=== PATIENT | female | born 1945 | race Caucasian/White ===

== ENCOUNTER → 2016-10-08 | Outpatient (CLI) | payer BC ==
[2016-10-08 10:52] LABS: BASO % 0.6 %; BASO ABS # 0.03 K/uL (0-0.2); COMPLETE YES; EOS % 4.4 %; LYMPH % 34.9 %; LYMPH ABS # 1.65 K/uL (1.2-3.4); MEAN CELL VOLUME 92.9 fL (80-100); MEAN CORPUSCULAR HEMOGLOBIN 31.5 pg (25-34); MEAN PLATELET VOLUME 11.8 fL (7.4-10.4); NEUT % 49.1 %; PLATELET COUNT 201 K/uL (130-400); RED BLOOD COUNT 4.63 M/uL (4.2-5.4); WHITE BLOOD COUNT 4.73 K/uL (4.8-10.8)
[2016-10-08 11:15] LABS: ESTIMATED AVERAGE GLUCOSE 126 mg/dl; HA1C FLAG Normal (Normal)
[2016-10-08 11:19] LABS: ALT/SGPT 30 U/L (12-78); BLOOD UREA NITROGEN 23 mg/dl (7-18); BUN/CREATININE RATIO 33.4 (10-20); CALCIUM 8.6 mg/dl (8.5-10.1); CARBON DIOXIDE 29 mmol/L (21-32); CHLORIDE 108 mmol/L (98-107); CHOLESTEROL 168 mg/dl (0-200); CREATININE 0.68 mg/dl (0.60-1.20); GLUCOSE 93 mg/dl (70-99); POTASSIUM 3.8 mmol/L (3.5-5.1); SODIUM 143 mmol/L (136-145); TRIGLYCERIDES 80 mg/dl (0-150); URIC ACID 3.8 mg/dl (2.6-7.2); VERY LOW DENSITY LIPOPROT CALC 16 mg/dl
[2016-10-08 11:27] LABS: ALB/GLOB RATIO 1.2 (0.9-2); ALKALINE PHOSPHATASE 98 U/L (45-117); AST/SGOT 24 U/L (15-37); CHOLESTEROL/HDL RATIO 2.2; HDL CHOLESTEROL 75 mg/dl; LDL CHOLESTEROL CALCULATED 77 mg/dl; PHOSPHORUS 3.5 mg/dl (2.5-4.9)
--- NOTE | 2016-10-16 11:01 | CODING QUERY MEDICAL NECESSITY ---
CQSUPPORTING DIAGNOSIS NEEDED A supporting diagnosis is required for the test/procedure performed on this patient in order for us to be reimbursed by the patient's insurance. Please provide a supporting diagnosis for the following test/procedure listed below next to the test name along with your signature. *If there is no additional diagnosis for this patient that would support the following test/procedure please document that below next to the test/procedure. Test(s)/Procedure(s) that require a supporting diagnosis: DOS 10/08/16 VITAMIN B12 TEST Provider Signature: Date: Thank you Brianna Bailon Health Information Management Once completed, please kindly fax back to [phone] For questions please call [phone]
== END | disposition home or self-care (01) ==
LOC: C.LABBC 07:30
PROVIDERS: ATTEND Family Medicine
DX: E11.9 Type 2 diabetes mellitus without complications (principal); D51.9 Vitamin B12 deficiency anemia, unspecified

== ENCOUNTER → 2017-03-18 | Outpatient (CLI) | payer BC ==
--- NOTE | 2017-03-19 14:31 | MAMMOGRAPHY REPORT ---
BILATERAL DIGITAL SCREENING MAMMOGRAM WITH CAD: 03/18/2017 CLINICAL HISTORY: Routine screening. TECHNIQUE: Current study was also evaluated with a Computer Aided Detection (CAD) system. Bilateral CC and MLO views were obtained. COMPARISON: Comparison is made to exams dated: 03/16/2016 mammogram, 03/12/2015 mammogram, 03/09/2014 ma mmogram, 03/07/2013 mammogram, 12/07/2011 mammogram, and 12/03/2010 mammogram - [facility]. BREAST COMPOSITION: The tissue of both breasts is extremely dense, which lowers the sensitivity of m ammography. FINDINGS: No suspicious masses, calcifications, or areas of architectural distortion are noted in ei ther breast. There has been no significant interval change compared to prior exams. Bilateral asymme tries and bilateral benign appearing calcifications are not significantly changed. IMPRESSION: ACR BI-RADS CATEGORY 2: BENIGN There is no mammographic evidence of malignancy. A 1 year screening mammogram is recommended. The pa tient will receive written notification of the results. Approximately 10% of breast cancers are not detected with mammography. A negative mammographic report should not delay biopsy if a clinically suggestive mass is present. Delmis Sinclair M.D. /:03/18/2017 16:25:18 Slot Host: Krys GRIFFITH(Rian)(), [facility] letter sent: Normal 1/2 BI-RADS Code: ACR BI-RADS Category 2: Benign
== END | disposition home or self-care (01) ==
LOC: C.MAMM 08:10
PROVIDERS: ATTEND Family Medicine
DX: Z12.31 Encounter for screening mammogram for malignant neoplasm of breast (principal)

== ENCOUNTER → 2017-09-29 | Outpatient (CLI) | payer BC ==
[2017-09-29 10:39] LABS: BASO % 0.7 %; BASO ABS # 0.03 K/uL (0-0.2); EOS % 5.4 %; EOS ABS # 0.24 K/uL (0-0.5); HEMATOCRIT 42.9 % (37-47); HEMOGLOBIN 14.7 g/dL (12.0-16.0); LYMPH % 31.1 %; LYMPH ABS # 1.37 K/uL (1.2-3.4); MEAN CELL VOLUME 92.3 fL (80-100); MEAN CORPUSCULAR HEMOGLOBIN 31.6 pg (25-34); MEAN CORPUSCULAR HGB CONC 34.3 g/dl (32-36); MEAN PLATELET VOLUME 11.6 fL (7.4-10.4); MONO % 9.8 %; MONO ABS # 0.43 K/uL (0.11-0.59); NEUT ABS # 2.34 K/uL (1.4-6.5); PLATELET COUNT 206 K/uL (130-400); RED CELL DISTRIBUTION WIDTH CV 13.5 % (11.5-14.5); RED CELL DISTRIBUTION WIDTH SD 45.2 fL (36.4-46.3); WHITE BLOOD COUNT 4.41 K/uL (4.8-10.8)
[2017-09-29 10:56] LABS: ALBUMIN 4.1 gm/dl (3.4-5.0); ALT/SGPT 37 U/L (12-78); AST/SGOT 28 U/L (15-37); BLOOD UREA NITROGEN 25 mg/dl (7-18); CALCIUM 9.3 mg/dl (8.5-10.1); CARBON DIOXIDE 31 mmol/L (21-32); CHOLESTEROL 190 mg/dl (0-200); GLUCOSE 97 mg/dl (70-99); POTASSIUM 3.8 mmol/L (3.5-5.1); SODIUM 141 mmol/L (136-145); URIC ACID 4.2 mg/dl (2.6-7.2)
[2017-09-29 11:05] LABS: ALKALINE PHOSPHATASE 95 U/L (45-117); LDL CHOLESTEROL CALCULATED 96 mg/dl; TOTAL PROTEIN 7.2 gm/dl (6.4-8.2); TRANSFERRIN 320 mg/dl (200-360)
[2017-09-29 11:39] LABS: HEMOGLOBIN A1C 5.9 % (4.5-5.6)
== END | disposition home or self-care (01) ==
LOC: C.LABBC 08:49
PROVIDERS: ATTEND Family Medicine
DX: E88.81 Metabolic syndrome and other insulin resistance (principal); E55.9 Vitamin D deficiency, unspecified; D51.9 Vitamin B12 deficiency anemia, unspecified; E78.9 Disorder of lipoprotein metabolism, unspecified; R53.83 Other fatigue

== ENCOUNTER → 2018-03-22 | Outpatient (CLI) | payer BC ==
--- NOTE | 2018-03-23 13:37 | MAMMOGRAPHY REPORT ---
BILATERAL DIGITAL SCREENING MAMMOGRAM TOMOSYNTHESIS WITH CAD: 03/22/2018 CLINICAL HISTORY: Routine screening. Patient has no complaints. TECHNIQUE: The study was acquired using full field digital technology and interpreted from soft copy. Breast tomosynthesis in addition to standard 2D mammography was performed. Current study was also ev aluated with a Computer Aided Detection (CAD) system. COMPARISON: Comparison is made to exams dated: 03/18/2017 mammogram, 03/16/2016 mammogram, 03/12/2015 m ammogram, 03/09/2014 mammogram, 03/07/2013 mammogram, and 12/07/2011 mammogram - [facility]. BREAST COMPOSITION: The tissue of both breasts is extremely dense, which lowers the sensitivity of ma mmography. FINDINGS: There are stable asymmetries in the medial left breast, and scattered benign-appearing calc ifications. No suspicious mass, architectural distortion or cluster of microcalcifications is seen. IMPRESSION: ACR BI-RADS CATEGORY 1: NEGATIVE There is no mammographic evidence of malignancy. A 1 year screening mammogram is recommended.( 019) The patient will receive written notification of the results. Some breast cancers are not detected with mammography. A negative mammographic report should not natalia y biopsy if a clinically suggestive mass is present. Laurie Interiano M.D. ay/:03/22/2018 15:09:34 [employer]: RT Heath(Rian)(M)(BD), [facility] letter sent: Normal 1/2 BI-RADS Code: ACR BI-RADS Category 1: Negative
== END | disposition home or self-care (01) ==
LOC: C.MAMM 08:18
PROVIDERS: ATTEND Family Medicine
DX: Z12.31 Encounter for screening mammogram for malignant neoplasm of breast (principal)

== ENCOUNTER 2018-12-17 20:55 | Inpatient (IN) ==
--- OUTSIDE RECORDS SUMMARY | 2018-12-17 20:57 | External Medical Summary | Continuity of Care Document ---
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 Refills: 0 Multi Vitamin Daily TABS Refills: 0 Fluorouracil 5 % External Cream; Apply t o nose and upper cutaneous lip once daily at bedtime for 3 weeks BEL Cordon Start: 15-Sep-2017 Quantity: 1 40 GM Tube Refills: 0 Aspirin 81 MG TABS; Take 1 tablet daily Refills: 0 Co Q-10 CAPS Refills: 0 Vitamin D CAPS Refills: 0 Procedures History of Tubal Ligation Status: Comple madie History of Tonsillectomy With Adenoidectomy Status: Completed Immunizations Immunizations not documented Family History Father Family history of Prostate Cancer (V16.42) Status: Active Social History - Smoking Status Never smoker Plan of Treatment Planned Encounters Appointment; Anson Fung M.D. Start: 29-Sep-2019 8:40 Re quest Planned Observations Planned Goals not documented Results No Known Results Results not documented Encounters Appointment; Anson Fung M.D. 28-Sep-2018 11:20 Encounter Diagnosis: Problem not documented Appointment; Paige Cordon PA-C 05-Nov-2017 9:00 Encounter Diagnosis: Problem not documented Appointment; Paige Cordon PA-C 15-Sep-2017 14:30 Encounter Diagnosis: Problem not documented Appointment; Anson Fung M.D. 29-Sep-2019 8:40 Encounter Diagnosis: Problem not documented
[2018-12-17 21:28] LABS: Basophils # (auto) 0.02 K/uL (0-0.2); Basophils % (auto) 0.2 %; Hematocrit (blood only) 40.9 % (37-47); Hemoglobin 14.5 g/dL (12.0-16.0); Immature Granulocytes # (auto) 0.04 K/uL (0.00-0.02); Immature Granulocytes % (auto) 0.3 %; Lymphocytes % (auto) 3.8 %; Mean Corpuscular Hgb Conc 35.5 g/dL (32-36); Mean Corpuscular Volume 89.3 fL (80-100); Monocytes # (auto) 0.46 K/uL (0.11-0.59); Monocytes % (auto) 3.5 %; Neutrophils # (auto) 11.97 K/uL (1.4-6.5); Neutrophils % (auto) 92.2 %; Platelet Count 230 K/uL (130-400); RDW Coefficient of Variation 13.2 % (11.5-14.5); RDW Standard Deviation 43.3 fL (36.4-46.3); Red Blood Count 4.58 M/uL (4.2-5.4); White Blood Count 12.99 K/uL (4.8-10.8)
[2018-12-17 21:29] LABS: Appearance Urine Clear (Clear); Bacteria Urine Automated Negative (Negative); Bilirubin Urine Negative (Negative); Color Urine Yellow; Epithelial Cell Urine Auto >30 /lpf (0-5); Glucose Urine UA Negative (Negative); Ketones Urine Trace (Negative); Leukocyte Esterase Urine Negative (Negative); Nitrite Urine Negative (Negative); Specific Gravity Urine 1.025 (1.000-1.030); Urobilinogen Urine Negative (Negative); pH Urine 7.5 (4.5-7.5)
[2018-12-17] MEDS ORDERED: HYDROmorphone INJ 0.5 MG/0.5 ML SYR IV PRN ×2 (21:34→23:55)
[2018-12-17] MEDS ORDERED: ONDANSETRON INJ 2 MG/ML 2 ML VIAL IV STA (21:34)
[2018-12-17 21:45] LABS: Protein Urine Negative (Negative)
[2018-12-17 21:46] LABS: Alanine Aminotransferase 31 U/L (12-78); Albumin Level 3.7 gm/dl (3.4-5.0); Aspartate Aminotransferase 30 U/L (15-37); BUN Creatinine Ratio 33.3 (10-20); Blood Urea Nitrogen 25 mg/dl (7-18); Calcium 8.8 mg/dl (8.5-10.1); Carbon Dioxide 26 mmol/L (21-32); Chloride 106 mmol/L (98-107); Creatinine Clr Calc Pharmacy 53.5 ml/min; Est GFR (African American) 92.3; Est GFR (Non-African American) 79.6; Glucose 176 mg/dl (70-99); Potassium 3.5 mmol/L (3.5-5.1); Sodium 139 mmol/L (136-145)
[2018-12-17 22:15] LABS: Alkaline Phosphatase 110 U/L (45-117); Bilirubin,Total 0.5 mg/dl (0.2-1); Globulin 3.6 gm/dl (2.5-4.0); Total Protein 7.3 gm/dl (6.4-8.2); Troponin I < 0.015 ng/ml (0-0.045)
--- NOTE | 2018-12-17 22:23 | CT Scan Report ---
CT OF THE ABDOMEN AND PELVIS WITHOUT CONTRAST CLINICAL HISTORY: Upper abdominal pain. COMPARISON STUDY: No previous studies for comparison. TECHNIQUE: Axial images of the abdomen and pelvis were obtained without IV contrast. Images were revi ewed in the axial, sagittal, and coronal planes. Automated exposure control was utilized for the melba dy. A dose lowering technique was utilized adhering to the principles of ALARA. FINDINGS: Lung bases are unremarkable. No pneumatosis, free air or portal venous gas is present. No r enal, ureteral or bladder calculi are present. A 1.7 cm left renal lesion is suboptimally assessed on this exam but this measures near water attenuation. Evaluation of the abdomen and pelvis is difficul t given lack of contrast. Note is made of infiltration within the mesentery as well as indistinctness of the pancreatic head with adjacent infiltration. There is no well-defined fluid collection. No naty iary or pancreatic ductal dilatation is identified. Multiple small bowel loops are mildly dilated and contain stool. However, there is no transition point to suggest a bowel obstruction. A moderate amou nt of stool within colon is also noted. There is no lymphadenopathy. No pelvic ascites. No suspicious osseous lesions are present. IMPRESSION: 1. Infiltration adjacent to the pancreatic head, second portion of the duodenum and within the mesent flavio. The findings raise the possibility of acute pancreatitis or peptic ulcer disease. Evaluation is difficult given the lack of IV contrast. If persistent abdominal pain, a contrast-enhanced CT is shashank mmended. 2. Mildly dilated stool-filled small bowel without transition point to suggest a bowel obstruction. M oderate amount of stool within the colon. Electronically signed by: Dennis Nolen M.D. 12/17/2018 10:22 PM
[2018-12-17] MEDS ORDERED: LACTATED RINGER'S 1,000 ML IV SCH (23:15)
--- NOTE | 2018-12-17 23:59 | History & Physical Report ---
Date of Service December 17, 2018 Assessment & Plan (1) Acute pancreatitis: 73-year-old female with history of hyperlipidemia presents with abdominal pain. Found to have a lipase of 36,[address] significant for infiltration adjacent to the pancreatic head. Pancreatitis Normal saline bolus in the ED, transition to 200 cc/h Pain control, Dilaudid 0.5 mg every 3 hours, as needed Keep n.p.o. Etiology unknownliver enzymes, bili within normal limits We will obtain MRCP Holding lovastatin Admit to [facility] Hyperlipidemia Recent lipid panel was within normal limits Holding statin, aspirin, coenzyme Q 10 CODE STATUS Full code Diet N.p.o. (2) Hyperlipidemia: History of Present Illness Primary Care Provider: Davy Pacheco 73-year-old female with a history of elevated cholesterol presents to the hospital after experiencing abdominal pain throughout the day. She stated that the abdominal pain started early this morning and progressively got worse throughout the day. She states that the pain is a dull pain and it became very severe after eating lunch this afternoon. She denies fevers, chills, nausea, vomiting, diarrhea. Patient denies a history of pancreatitis. She denies a history of gallstones. She does endorse eating more fatty foods latelywas recently on vacation. 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 Family historydiabetes in her father, grandmother of pancreatic cancer at age 97 Allergies Allergy/AdvReac Type Severity Reaction Status Date / Time No Known Allergies Allergy Unverified 12/17/18 21:49 Home Medications Home Medications Medication Instructions Recorded Confirmed Type aspirin [Aspir-81] 81 mg PO Q2D 12/17/18 12/17/18 History cholecalciferol (vitamin D3) 400 unit PO DAILY 12/17/18 12/17/18 History coenzyme Q10 [Co Q-10] 100 mg PO DAILY 12/17/18 12/17/18 History lovastatin 20 mg PO DAILY 12/17/18 12/17/18 History multivitamin [Multiple Vitamins] 1 tab PO DAILY 12/17/18 12/17/18 History Past Med/Surg History Surgical History S/P cataract surgery Family History Other Pancreatic cancer Prostate cancer Social History Preferred Language: Bulgarian Communication Ability: Effective Operation Manager Required: No Beliefs That Will Affect Care: None marital status: Current Living Situation: Spouse current occupational status: retired Feels Safe at Home: Yes Safety Concerns: Feels Safe At This Time Smoking Status: Never smoker Hx Alcohol Use: Yes Alcohol type: wine Hx Substance Use: No Review of Systems Review of Systems: All systems reviewed & are unremarkable except as noted in HPI & below Physical Exam Constitutional: WD/WN, vitals as above Eyes: PERRL, conjunctivae normal, anicteric sclerae ENMT: external ear and nose normal, oropharynx normal Neck: trachea midline, no thyromegaly Respiratory: normal respiratory effort, lungs clear to auscultation Cardiovascular: RRR, no murmur, no edema Gastrointestinal (Abdomen): Inspection/Auscultation: abdomen normal to inspection and normal bowel sounds; abdomen not distended Percussion/Palpation: + abdomen tender (epigastric ) and abdomen soft; no guarding and abdomen not rigid Musculoskeletal: no cyanosis or clubbing, extremities motor strength 5/5 Skin: no rashes, warm and dry Neurologic: patellar DTR's 2+ bilat, sensation intact Psychiatric: A+Ox3, euthymic affect Results & Data Vital Signs (Past 12 Hours) Vital Signs Temp Pulse Pulse Resp BP Pulse Ox 12/17/18 23:56 71 118/68 96 12/17/18 23:03 76 116/67 97 12/17/18 21:55 80 18 126/70 98 12/17/18 20:57 37.1 C 88 16 100 Diagnostic Findings [facility], [place] [phone] CT Scan Report Patient: Pretty GUIDO Date: 12/17/18 MR#: [id number]: [address] Acct ID:[id number]: Date: [address] Zip: [place] [address] Age: 73Location: ED Sex: F Room/Bed: Att Phy: Diagnosis: ABD PAIN Katie Phy: Davy Pacheco M.D.Service Date: 12/17/18 [facility] Phy: Davy Pacheco M.D.Interpreting Phy: Dennis Nolen MD Admit Phy: Ordering Phy: Farrukh Mahoney MD cc: ~ CT OF THE ABDOMEN AND PELVIS WITHOUT CONTRAST CLINICAL HISTORY: Upper abdominal pain. COMPARISON STUDY: No previous studies for comparison. TECHNIQUE: Axial images of the abdomen and pelvis were obtained without IV contrast. Images were reviewed in the axial, sagittal, and coronal planes. Automated exposure control was utilized for the study. A dose lowering technique was utilized adhering to the principles of ALARA. FINDINGS: Lung bases are unremarkable. No pneumatosis, free air or portal venous gas is present. No renal, ureteral or bladder calculi are present. A 1.7 cm left renal lesion is suboptimally assessed on this exam but this measures near water attenuation. Evaluation of the abdomen and pelvis is difficult given lack of contrast. Note is made of infiltration within the mesentery as well as indistinctness of the pancreatic head with adjacent infiltration. There is no well-defined fluid collection. No biliary or pancreatic ductal dilatation is identified. Multiple small bowel loops are mildly dilated and contain stool. However, there is no transition point to suggest a bowel obstruction. A moderate amount of stool within colon is also noted. There is no lymphadenopathy. No pelvic ascites. No suspicious osseous lesions are present. IMPRESSION: 1. Infiltration adjacent to the pancreatic head, second portion of the duodenum and within the mesentery. The findings raise the possibility of acute pancreatitis or peptic ulcer disease. Evaluation is difficult given the lack of IV contrast. If persistent abdominal pain, a contrast-enhanced CT is recommended. 2. Mildly dilated stool-filled small bowel without transition point to suggest a bowel obstruction. Moderate amount of stool within the colon. Electronically signed by: Dennis Nolen M.D. 12/17/2018 10:22 PM Dictated: 12/17/18 2156 Code Status & VTE Plan Code Status full VTE Prophylaxis Plan VTE Prophylaxis will be ordered: Yes Supervising Physician Co-Signing Physician Notes Attending addendum: I have physically seen this patient, have supervised the medical residents activities, and agree with the H&P unless as otherwise noted. Assessment and Plan: Acute pancreatitis- Lipase upon admission 36,013. CT of abdomen pelvis with inflammation of the pancreatic head, second part of duodenum and mesentery. NPO Give normal saline bolus, followed by 200 mils per hour. Serial laboratories. Dilaudid 0.5 mg IV every 3 hours as needed severe pain. Acetaminophen 1 g IV every 8 hours as needed mild pain or temperature. Consult gastroenterology. Remainder of orders and notations as noted. Resident Activity Tracking Resident Involvement: Resident Care Provided Care Provided: Adult Hospital Medicine (1) Acute pancreatitis Acute pancreatitis complication: unspecified Pancreatitis type: unspecified pancreatitis type Qualified Code(s): K85.90 - Acute pancreatitis without necrosis or infection, unspecified
[2018-12-18] MEDS ORDERED: SODIUM CHLORIDE 0.9% 1000ML 1,000 ML IV SCH
--- NOTE | 2018-12-18 01:23 | Emergency Department Note ---
Entered by Mag Wise acting as a scribe for ED Provider Note CHIEF COMPLAINT: Abdominal pain HISTORY OF PRESENT ILLNESS: The patient is a 73 year old female who presents to the Emergency Room with complaints of worsening upper central abdominal pain starting this morning after breakfast and worsening after lunch. She reports that her pain does not radiate and now rates it a 7/10. She states that she tried taking magnesium citrate and an enema because she thought she was constipated, but she notes that this did not alleviate her pain. The patient reports that she experienced similar but less severe pain following her cataract surgery a year ago, after which she did not eat or drink all day. She denies a history of abdominal surgeries but reports a family history of pancreatic and prostate cancer. Pt denies LOC, headache, fevers, chills, diaphoresis, visual changes, neck pain, chest pain, breathing difficulties, nausea, vomiting, back pain, melena, hematochezia, urinary symptoms, numbness, weakness, lymphadenopathy, rash, or other complaints. REVIEW OF SYSTEMS: See HPI for pertinent positives and negatives. A total of ten systems were reviewed and were otherwise negative. PMHx/PSHx: Cataract surgery SOCIAL HISTORY: Patient lives at home. She is and retired. PHYSICAL EXAM: GENERAL: Awake, alert, uncomfortable-appearing, in no distress HENT: Normocephalic, atraumatic. Oropharynx unremarkable. EYES: PERRL. Normal conjunctiva. Sclera non-icteric. NECK: Inspection normal. Non-tender. Supple. No nuchal rigidity. FROM. No masses. RESPIRATORY: Clear to auscultation. No wheezes. No rales. Normal respiratory effort. CARDIAC: Normal rate. Normal rhythm. No murmurs. No rubs. Extremities warm and well perfused. Pulses equal. No JVD. GI: Soft, non-distended. No tenderness to palpation. No rebound or guarding. No masses. Epigastric abdominal pain. RECTAL: Deferred. MUSCULOSKELETAL: Atraumatic. Chest examination reveals no tenderness. The back is symmetrical on inspection without obvious abnormality. There is no CVA tenderness to palpation. No joint edema. LOWER EXTREMITIES: Calves are equal size bilaterally and non-tender. No edema. No discoloration. NEURO: Normal sensorium. No sensory or motor deficits noted. SKIN: No rash or jaundice noted. EMERGENCY DEPARTMENT COURSE: 2112: Past medical records reviewed. The patient was evaluated in room B11B, and a complete history and physical examination were performed. 2315: I reviewed the patient's case with Dr. Rosario - Hospitalist, Yari Rinaldi. Dr. Rosario will evaluate the patient for further management. MEDICAL DECISION MAKING: Prior records/ancillary studies reviewed. Triage Nursing notes reviewed and agree them. Additional history obtained from the patient's . The patient's history was concerning for abdominal pain. Differential diagnosis: Etiologies such as PUD, biliary pathology, UTI, pancreatitis, appendicitis, diverticulitis, obstruction, mesenteric ischemia, aortic pathology, infections, inflammatory bowel disease, renal colic, as well as others were entertained. Physical examination findings: As above. ER treatment provided: IV lactated Ringer's IV Dilaudid IV Zofran On reassessment the patient felt better. Diagnostics interpreted by me: ECG: No acute ischemic change. The labs revealed an unremarkable CBC except for mild leukocytosis. Chemistry panel revealed mild hyperglycemia. LFTs unremarkable. The patient's lipase is markedly elevated concerning for pancreatitis. Imaging studies: Inflammatory change noted around the pancreas concerning for pancreatitis. Patient was educated. She is feeling better after the above treatment. Further management in the hospital will be necessary. Consultation: A consultation was placed with the yari Rinaldi hospitalist team. The case was discussed and diagnostics were reviewed. The patient was evaluated in the ER for further treatment. IMPRESSION: Acute pancreatitis PLAN: Admitted The scribe's documentation has been prepared under my direction and personally reviewed by me in its entirety. I confirm that the note above accurately reflects all work, treatment, procedures, and medical decision making performed by me. Impression & Plan Acute pancreatitis Past Med/Surg History Surgical History S/P cataract surgery Family History Other Pancreatic cancer Prostate cancer Social History Preferred Language: Telugu Communication Ability: Effective Forensic Investigator Required: No Beliefs That Will Affect Care: None marital status: Current Living Situation: Spouse current occupational status: retired Feels Safe at Home: Yes Safety Concerns: Feels Safe At This Time Smoking Status: Never smoker Hx Alcohol Use: Yes Alcohol type: wine Hx Substance Use: No Results & Data Vital Signs Vital Signs - 24 hr 12/17/18 20:57 12/17/18 21:55 12/17/18 23:03 Temperature 37.1 C Temperature Source Oral Sepsis Recent Fever Within 48 Hours No Sepsis Action Taken by Nursing No Action Required Pulse Rate 88 Pulse Rate [Left Finger] 80 76 Pulse Rhythm [Left Finger] Pulse Strength [Left Finger] Respiratory Rate 16 18 Respiratory Effort / Characteristics Non-Labored Respiratory Depth Normal Respiratory Pattern Blood Pressure [Right Arm] 126/70 116/67 Blood Pressure Mean [Right Arm] 88 83 Blood Pressure Position [Right Arm] Sitting Pulse Oximetry 100 98 97 Oxygen Delivery Method Room Air Room Air 12/17/18 23:56 12/18/18 00:00 12/18/18 00:07 Temperature 36.5 C Temperature Source Oral Sepsis Recent Fever Within 48 Hours Sepsis Action Taken by Nursing Pulse Rate Pulse Rate [Left Finger] 71 71 78 Pulse Rhythm [Left Finger] Regular Pulse Strength [Left Finger] Normal Respiratory Rate 14 20 Respiratory Effort / Characteristics Non-Labored Spontaneous Respiratory Depth Normal Respiratory Pattern Regular Blood Pressure [Right Arm] 118/68 120/73 120/73 Blood Pressure Mean [Right Arm] 84 88 88 Blood Pressure Position [Right Arm] Lying Pulse Oximetry 96 95 95 Oxygen Delivery Method Room Air Room Air Room Air Home Medications Current Medication List: was personally reviewed by me Laboratory Data Attestation: I reviewed the patient's lab results. Result diagrams: 12/17/18 21:04 12/17/18 21:04 Lab Results 12/17/18 12/17/18 12/17/18 Range/Units 21:04 21:04 21:10 WBC 12.99 H (4.8-10.8) K/uL RBC 4.58 (4.2-5.4) M/uL Hgb 14.5 (12.0-16.0) g/dL Hct 40.9 (37-47) % MCV 89.3 (80-100) fL MCH 31.7 (25-34) pg MCHC 35.5 (32-36) g/dL RDW Std Deviation 43.3 (36.4-46.3) fL RDW Coeff of Rodolfo 13.2 (11.5-14.5) % Plt Count 230 (130-400) K/uL MPV 11.0 H (7.4-10.4) fL Immature Gran % (Auto) 0.3 % Neut % (Auto) 92.2 % Lymph % (Auto) 3.8 % Major % (Auto) 3.5 % Eos % (Auto) 0.0 % Baso % (Auto) 0.2 % Immature Gran # (Auto) 0.04 H (0.00-0.02) K/uL Neut # (Auto) 11.97 H (1.4-6.5) K/uL Lymph # (Auto) 0.50 L (1.2-3.4) K/uL Major # (Auto) 0.46 (0.11-0.59) K/uL Eos # (Auto) 0.00 (0-0.5) K/uL Baso # (Auto) 0.02 (0-0.2) K/uL Sodium 139 (136-145) mmol/L Potassium 3.5 (3.5-5.1) mmol/L Chloride 106 (98-107) mmol/L Carbon Dioxide 26 (21-32) mmol/L Anion Gap 7.0 (3-11) BUN 25 H (7-18) mg/dl Creatinine 0.75 (0.6-1.2) mg/dl Est Cr Clr Drug Dosing 53.5 ml/min Est GFR ( Amer) 92.3 Est GFR (Non-Af Amer) 79.6 BUN/Creatinine Ratio 33.3 H (10-20) Glucose 176 H (70-99) mg/dl Calcium 8.8 (8.5-10.1) mg/dl Total Bilirubin 0.5 (0.2-1) mg/dl AST 30 (15-37) U/L ALT 31 (12-78) U/L Alkaline Phosphatase 110 (45-117) U/L Troponin I < 0.015 (0-0.045) ng/ml Total Protein 7.3 (6.4-8.2) gm/dl Albumin 3.7 (3.4-5.0) gm/dl Globulin 3.6 (2.5-4.0) gm/dl Albumin/Globulin Ratio 1.0 (0.9-2) Lipase 00755 H (73-393) U/L Urine Color Yellow Urine Appearance Clear (Clear) Urine pH 7.5 (4.5-7.5) Ur Specific [place] 1.025 (1.000-1.030) Urine Protein Negative (Negative) Urine Glucose (UA) Negative (Negative) Urine Ketones Trace H (Negative) Urine Blood Negative (Negative) Urine Nitrite Negative (Negative) Urine Bilirubin Negative (Negative) Urine Urobilinogen Negative (Negative) Ur Leukocyte Esterase Negative (Negative) Urine WBC (Auto) 1-5 (0-5) /hpf Urine RBC (Auto) 0-4 (0-4) /hpf U Hyaline Cast (Auto) 1-5 (0-5) /lpf U Epithel Cells (Auto) >30 H (0-5) /lpf Urine Bacteria (Auto) Negative (Negative) Ur Renal Epithelial Cell Not Reportable Administered Medications Discontinued Medications Hydromorphone HCl (Dilaudid) 0.5 mg IV Q15M PRN PRN Reason: Pain Stop: 12/31/18 21:33 Last Admin: 12/17/18 21:54 Dose: 0.5 mg Documented by: [id number] Ondansetron HCl (Zofran) 4 mg IV NOW STA Stop: 12/17/18 21:35 Last Admin: 12/17/18 21:54 Dose: 4 mg Documented by: [id number] Imaging Data Radiologist's Impression: Radiology results as stated below per my review and the radiologist's interpretation: CT OF THE ABDOMEN AND PELVIS WITHOUT CONTRAST CLINICAL HISTORY: Upper abdominal pain. COMPARISON STUDY: No previous studies for comparison. TECHNIQUE: Axial images of the abdomen and pelvis were obtained without IV con trast. Images were reviewed in the axial, sagittal, and coronal planes. Automated exposure control was utilized for the study. A dose lowering technique was utilized adhering to the principles of ALARA. FINDINGS: Lung bases are unremarkable. No pneumatosis, free air or portal venous gas is present. No renal, ureteral or bladder calculi are present. A 1.7 cm left renal lesion is suboptimally assessed on this exam but this measures near water attenuation. Evaluation of the abdomen and pelvis is difficult given lack of contrast. Note is made of infiltration within the mesentery as well as in distinctness of the pancreatic head with adjacent infiltration. There is no well-defined fluid collection. No biliary or pancreatic ductal dilatation is identified. Multiple small bowel loops are mildly dilated and contain stool. However, there is no transition point to suggest a bowel obstruction. A moderate amount of stool within colon is also noted. There is no lymphadenopathy. No pelvic ascites. No suspicious osseous lesions are present. IMPRESSION: 1. Infiltration adjacent to the pancreatic head, second portion of the duodenum and within the mesentery. The findings raise the possibility of acute pancreatitis or peptic ulcer disease. Evaluation is difficult given the lack of IV contrast. If persistent abdominal pain, a contrast-enhanced CT is recommended. 2. Mildly dilated stool-filled small bowel without transition point to suggest a bowel obstruction. Moderate amount of stool within the colon. Electronically signed by: Dennis Nolen M.D. 12/17/2018 10:22 PM ECG Data Attestation: I personally reviewed and interpreted this ECG as follows: Indication: abdominal pain Rate (beats per minute): 79 Rhythm: normal sinus Findings: no PAC, no PVC, no ST depression and no ST elevation Blood Pressure Blood Pressure Findings: Normal blood pressure Discharge Plan Visit Data Chief Complaint: Abdominal Pain Stated Complaint: ABD PAIN ED Provider: Farrukh Mahoney Discharge Problem: Acute pancreatitis Patient Disposition: Admitted As Inpatient Forms Stand Alone Forms: Call Back Authorization, My [facility] Prescriptions Prescriptions: No Action lovastatin 20 mg tablet 20 mg PO DAILY RF: 0 coenzyme Q10 [Co Q-10] 100 mg Capsule 100 mg PO DAILY RF: 0 cholecalciferol (vitamin D3) 400 unit Tablet 400 unit PO DAILY RF: 0 aspirin [Aspir-81] 81 mg Tablet,Delayed Release (Dr/Ec) 81 mg PO Q2D RF: 0 multivitamin [Multiple Vitamins] Tablet 1 tab PO DAILY RF: 0 Referrals Referrals: Davy Pacheco [Primary Care Provider] - Discharge Problem: Acute pancreatitis Qualifiers: Pancreatitis type: unspecified pancreatitis type Acute pancreatitis complication: unspecified Qualified Code(s): K85.90 - Acute pancreatitis without necrosis or infection, unspecified The scribe's documentation has been prepared under my direction and personally reviewed by me in its entirety. I confirm that the note above accurately reflects all work, treatment, procedures, and medical decision making performed by me.
[2018-12-18] MEDS ORDERED: ONDANSETRON INJ 2 MG/ML 2 ML VIAL IV PRN (01:42)
[2018-12-18] MEDS: SODIUM CHLORIDE 0.9% 1000ML 1,000 ML IV SCH ×5 (01:44→19:47)
[2018-12-18 05:52] LABS: Basophils # (auto) 0.01 K/uL (0-0.2); Basophils % (auto) 0.1 %; Eosinophils # (auto) 0.04 K/uL (0-0.5); Eosinophils % (auto) 0.4 %; Hematocrit (blood only) 35.3 % (37-47); Hemoglobin 12.2 g/dL (12.0-16.0); Immature Granulocytes # (auto) 0.03 K/uL (0.00-0.02); Immature Granulocytes % (auto) 0.3 %; Lymphocytes # (auto) 0.94 K/uL (1.2-3.4); Lymphocytes % (auto) 9.4 %; Mean Corpuscular Hgb Conc 34.6 g/dL (32-36); Mean Corpuscular Volume 90.3 fL (80-100); Mean Platelet Volume 10.9 fL (7.4-10.4); Monocytes # (auto) 0.72 K/uL (0.11-0.59); Monocytes % (auto) 7.2 %; Neutrophils # (auto) 8.22 K/uL (1.4-6.5); Neutrophils % (auto) 82.6 %; Platelet Count 188 K/uL (130-400); RDW Coefficient of Variation 13.5 % (11.5-14.5); RDW Standard Deviation 44.4 fL (36.4-46.3); Red Blood Count 3.91 M/uL (4.2-5.4); White Blood Count 9.96 K/uL (4.8-10.8)
[2018-12-18 06:26] LABS: INR 1.1 (0.9-1.1); Prothrombin Time 11.1 Seconds (9.0-12.0)
[2018-12-18 06:32] LABS: BUN Creatinine Ratio 33.8 (10-20); Calcium 7.7 mg/dl (8.5-10.1); Creatinine Clr Calc Pharmacy 70.4 ml/min; Est GFR (African American) 107.3; Est GFR (Non-African American) 92.6; Magnesium 2.4 mg/dl (1.8-2.4); Potassium 3.8 mmol/L (3.5-5.1)
[2018-12-18 06:51] LABS: Albumin Globulin Ratio 1.1 (0.9-2); Bilirubin,Total 0.4 mg/dl (0.2-1); Globulin 2.7 gm/dl (2.5-4.0); Phosphorus 3.4 mg/dl (2.5-4.9); Total Protein 5.7 gm/dl (6.4-8.2)
[2018-12-18] MEDS: ENOXAPARIN INJ 40 MG/0.4 ML SYR SQ SCH (11:02)
--- NOTE | 2018-12-18 11:36 | Magnetic Resonance Report ---
MRCP CLINICAL HISTORY: Pancreatitis. COMPARISON STUDY: CT of the abdomen and pelvis December 17, 2018. TECHNIQUE: Utilizing a 1.5 Sera magnet, multiplanar, multi echo imaging of the abdomen was performed without intravenous contrast. FINDINGS: There is no biliary or pancreatic ductal dilatation. No common bile duct calculi are identi fied. No gallstones are identified although sensitivity is diminished on this exam given motion artif act. There is a pancreas divisum. The caliber of the main pancreatic duct is normal. Extensive fluid and infiltration centered on the pancreatic head is noted. This extends into the mesentery. No well-d efined fluid collection is present. Diverticulum of the duodenum is noted. A left renal cyst is prese nt. Liver morphology is normal. No hepatic lesions are identified on this unenhanced exam. There is t race perihepatic ascites. IMPRESSION: 1. No biliary ductal dilatation. No common bile duct calculi. 2. Extensive peripancreatic infiltration and fluid consistent with acute pancreatitis. 3. Suspected pancreas divisum. Electronically signed by: Dennis Nolen M.D. 12/18/2018 11:34 AM
[2018-12-18] MEDS: HYDROmorphone INJ 0.5 MG/0.5 ML SYR IV PRN (14:40)
[2018-12-19] MEDS: HYDROmorphone INJ 0.5 MG/0.5 ML SYR IV PRN ×2 (00:05→20:33)
[2018-12-19] MEDS: SODIUM CHLORIDE 0.9% 1000ML 1,000 ML IV SCH ×4 (00:53→19:49)
[2018-12-19] MEDS: ENOXAPARIN INJ 40 MG/0.4 ML SYR SQ SCH (08:16)
[2018-12-19 09:37] LABS: Hematocrit (blood only) 33.8 % (37-47); Hemoglobin 11.3 g/dL (12.0-16.0); Mean Corpuscular Hgb Conc 33.4 g/dL (32-36); Mean Corpuscular Volume 93.4 fL (80-100); Mean Platelet Volume 11.1 fL (7.4-10.4); Platelet Count 142 K/uL (130-400); RDW Standard Deviation 47.9 fL (36.4-46.3); Red Blood Count 3.62 M/uL (4.2-5.4); White Blood Count 12.64 K/uL (4.8-10.8)
[2018-12-19 10:09] LABS: Albumin Level 2.6 gm/dl (3.4-5.0); BUN Creatinine Ratio 32.1 (10-20); Creatinine Clr Calc Pharmacy 74.3 ml/min; Est GFR (African American) 109.3; Est GFR (Non-African American) 94.3; Potassium 3.6 mmol/L (3.5-5.1)
[2018-12-19 10:12] LABS: Albumin Globulin Ratio 0.9 (0.9-2); Bilirubin,Total 0.4 mg/dl (0.2-1); Total Protein 5.6 gm/dl (6.4-8.2)
--- NOTE | 2018-12-19 12:44 | Gastrointestinal Consultation ---
Date of Consultation December 19, 2018 Assessment & Plan (1) Acute pancreatitis: 73 year old female w/ abupt onset upper abdominal pain w/o nausea/vomiting. Lipase on admission was over 30,000 which normalized overnight to 300. Her LFTs have been unremarkable. Imaging w/ evidence of extensive fluid and infiltration on the pancreatic head. Imaging w/o gallstones, biliary dilation, mass/lesion of the pancreas. Etiology unclear, she does have a divisium but the abrupt normalization of lipase concerning for passing stone/sludge She is clinically improving, less abd pain, no nausea or vomiting. She is afebrile, w/ stable vital signs. Appetite back - LR 150 mL/hr - Antiemetics PRN - Analgesia PRN - Consider ABD US as MR had motion artifact to rule out any gallstones - Trial of clear liquids as tolerated - OP EGD/EUS in 6-8 weeks - Will review imaging w/ attending and discuss timing of EUS Thank you for allowing us to participate in the care of this patient. Please call with any acute changes, questions or concerns. Please see addendum below with additional recommendation from my supervising physician. Present on Admission?: Yes Supervising Physician Co-Signing Physician Notes I performed a history and physical examination of the patient, including specifically on physical exam - soft, nontender abdomen. I have discussed the patient's management with Imelda. Please refer to the nurse practitioner's note for the documented findings and plan of care. 73 female patient presented with abdominal pain, found to have mild acute pancreatitis, unclear etiology. Clinically improved and tolerated PO liquids. Imaging with no gallstones or biliary dilation. ?Divisim. Recommend: EUS as OP. Advance diet as tolerated. Recall GI if needed. History of Present Illness Reason for Consultation: pancreatitis Requesting Physician: Jorge Attending Physician: Kvng Patel History of Present Illness 73 year old female with history of dyslipidemia who presents through the ED for evaluation of upper abdominal pain - GI asked to evaluate for pancreatits. Pt was seen and evaluated, chart reviewed. Friend at bedside. Notes abrupt onset upper abdominal pain that started on Wednesday. In the AM this was intermittent, cramping. As the day progressed, this worsened. Constant. Sharp. Would radiate under both breasts and into his back. No vomiting. Rated this pain as 8/10. Since admission this has been improving, Less severe pain. No longer constant. No change in BM. Passing gas. No BM today. No weight loss. No fever, chills, CP, SOB. No new meds No supplemets Had a glass of wine in October, no other ETOH No history of gallstones, biliary colic. No prior episode of pancreatitis. No family history of pancreatitis. There is family history of pancreatic CA in her grandmother. MRCP: No biliary ductal dilatation. No common bile duct calculi. Extensive peripancreatic infiltration and fluid consistent with acute pancreatitis. Suspected pancreas divisum. CT: Infiltration adjacent to the pancreatic head, second portion of the duodenum and within the mesentery. The findings raise the possibility of acute pancreatitis or peptic ulcer disease. Evaluation is difficult given the lack of IV contrast. If persistent abdominal pain, a contrast-enhanced CT is recommended. Mildly dilated stool-filled small bowel without transition point to suggest a bowel obstruction. Moderate amount of stool within the c Allergies Allergy/AdvReac Type Severity Reaction Status Date / Time No Known Allergies Allergy Unverified 12/17/18 21:49 Home Medications Home Medications Medication Instructions Recorded Confirmed Type aspirin [Aspir-81] 81 mg PO Q2D 12/17/18 12/17/18 History cholecalciferol (vitamin D3) 400 unit PO DAILY 12/17/18 12/17/18 History coenzyme Q10 [Co Q-10] 100 mg PO DAILY 12/17/18 12/17/18 History lovastatin 20 mg PO DAILY 12/17/18 12/17/18 History multivitamin [Multiple Vitamins] 1 tab PO DAILY 12/17/18 12/17/18 History Patient History Surgical History S/P cataract surgery Family History Other Pancreatic cancer Prostate cancer Social History Preferred Language: Ivorian Communication Ability: Effective Test Automation Architect Required: No Beliefs That Will Affect Care: None marital status: Current Living Situation: Spouse current occupational status: retired Feels Safe at Home: Yes Safety Concerns: Feels Safe At This Time Smoking Status: Never smoker Hx Alcohol Use: Yes Alcohol type: wine Hx Substance Use: No Review of Systems Constitutional: no fever, no chills, no fatigue and no weight loss Respiratory: no cough, no chest congestion, no dyspnea, no pain on inspiration and no wheezing Cardiovascular: no chest pain, no chest pain at rest, no dyspnea and no palpitations Gastrointestinal: + bloating; no abdominal pain, no belching, no early satiety, no heartburn, no nausea, no vomiting, no coffee ground emesis, no hematemesis, no pain with swallowing, no dysphagia, no cramping, no excessive flatulence, no change in bowel habits, no change in stools, no constipation, no diarrhea/loose stools, no fecal incontinence, no constant urge to pass stools, no blood in stools, no melena and no problem reported Physical Exam Constitutional: WD/WN, vitals as above no acute distress Respiratory: normal respiratory effort, lungs clear to auscultation Cardiovascular: RRR, no murmur, no edema Gastrointestinal (Abdomen): normal bowel sounds, soft, nontender, no hepatosplenomegaly Skin: no rashes, warm and dry Psychiatric: Orientation: alert and oriented x 3 Results & Data Vital Signs (Past 12 Hours) Vital Signs Temp Pulse Resp BP Pulse Ox 12/19/18 07:00 36.6 C 82 17 106/58 L 94 Laboratory Results 12/19/18 12/19/18 Range/Units 09:27 09:27 WBC 12.64 H (4.8-10.8) K/uL RBC 3.62 L (4.2-5.4) M/uL Hgb 11.3 L (12.0-16.0) g/dL Hct 33.8 L (37-47) % MCV 93.4 (80-100) fL MCH 31.2 (25-34) pg MCHC 33.4 (32-36) g/dL RDW Std Deviation 47.9 H (36.4-46.3) fL RDW Coeff of Rodolfo 14.0 (11.5-14.5) % Plt Count 142 (130-400) K/uL MPV 11.1 H (7.4-10.4) fL Sodium 145 (136-145) mmol/L Potassium 3.6 (3.5-5.1) mmol/L Chloride 115 H (98-107) mmol/L Carbon Dioxide 20 L (21-32) mmol/L Anion Gap 11.0 (3-11) BUN 17 (7-18) mg/dl Creatinine 0.54 L (0.6-1.2) mg/dl Est Cr Clr Drug Dosing 74.3 ml/min Est GFR ( Amer) 109.3 Est GFR (Non-Af Amer) 94.3 BUN/Creatinine Ratio 32.1 H (10-20) Glucose 89 (70-99) mg/dl Calcium 8.0 L (8.5-10.1) mg/dl Total Bilirubin 0.4 (0.2-1) mg/dl AST 21 (15-37) U/L ALT 21 (12-78) U/L Alkaline Phosphatase 82 (45-117) U/L Total Protein 5.6 L (6.4-8.2) gm/dl Albumin 2.6 L (3.4-5.0) gm/dl Globulin 3.0 (2.5-4.0) gm/dl Albumin/Globulin Ratio 0.9 (0.9-2) Triglycerides 46 (0-150) mg/dl Lipase 261 (73-393) U/L (1) Acute pancreatitis Acute pancreatitis complication: unspecified Pancreatitis type: unspecified pancreatitis type Qualified Code(s): K85.90 - Acute pancreatitis without necrosis or infection, unspecified
[2018-12-19] MEDS: POLYETHYLENE (MIRALAX) 17 GM PACK PO SCH (17:18)
--- NOTE | 2018-12-19 20:48 | Hospitalist Progress Note ---
Date of Service December 19, 2018 Assessment & Plan (1) Acute pancreatitis: etiology uncertain. no gallstones or sludge on imaging studies including MRCP. no etoh use. calcium normal. triglycerides normal. does use a statin at home but has been on such for 10-15 years -- doubt it caused it. has pancreatic divisum but uncertain if this was main culprit. I would have expected that if the divisum was main etiology she would have had pancreatitis much earlier in life. viral? other? I have asked Selena ROTHMAN to see in consult. Outpatient EUS?? Start clears. Cut fluid rate today. Advance diet as tolerated. hold statin for now. (2) Hyperlipidemia: see above discussion hold statin for now (3) DVT prophylaxis: lovenox daily ambulate Subjective patient's abd pain much improved. minimal today. nausea yesterday -- none today. denies emesis. no BM several days. passing flatus. confirms she does not drink etoh. has been on statin agent for 10-15 years. Review of Systems Constitutional: no fever, no chills and no fatigue Respiratory: no dyspnea Cardiovascular: no chest pain Physical Exam Constitutional: WD/WN, vitals as above no acute distress ENMT: external ear and nose normal, oropharynx normal Respiratory: normal respiratory effort, lungs clear to auscultation Cardiovascular: RRR, no murmur, no edema Heart Sounds: normal S1 and normal S2 Vessels: posterior tibial pulses present and dorsalis pedis pulses present; no JVD Gastrointestinal (Abdomen): normal bowel sounds, soft, nontender, no hepatosplenomegaly Psychiatric: A+Ox3, euthymic affect Results & Data Vital Signs (Past 12 Hours) Vital Signs Temp Pulse Resp BP Pulse Ox 12/19/18 15:17 36.6 C 67 18 118/71 97 Laboratory Results lipase normal today WBC count 12,000 (1) Acute pancreatitis Acute pancreatitis complication: unspecified Pancreatitis type: unspecified pancreatitis type Qualified Code(s): K85.90 - Acute pancreatitis without necrosis or infection, unspecified (2) Hyperlipidemia Hyperlipidemia type: mixed hyperlipidemia Qualified Code(s): E78.2 - Mixed hyperlipidemia
[2018-12-19] MEDS ORDERED: Nursing to Pharmacy Communication ONE (21:27)
[2018-12-20] MEDS: HYDROmorphone INJ 0.5 MG/0.5 ML SYR IV PRN ×2 (02:58→14:33)
[2018-12-20 05:19] LABS: Hematocrit (blood only) 32.7 % (37-47); Hemoglobin 11.3 g/dL (12.0-16.0); Mean Corpuscular Hgb Conc 34.6 g/dL (32-36); Mean Corpuscular Volume 91.3 fL (80-100); Platelet Count 150 K/uL (130-400); RDW Coefficient of Variation 13.9 % (11.5-14.5); RDW Standard Deviation 46.1 fL (36.4-46.3); Red Blood Count 3.58 M/uL (4.2-5.4); White Blood Count 13.19 K/uL (4.8-10.8)
[2018-12-20] MEDS: SODIUM CHLORIDE 0.9% 1000ML 1,000 ML IV SCH ×3 (05:53→15:36)
[2018-12-20 05:55] LABS: BUN Creatinine Ratio 43.9 (10-20); Calcium 7.7 mg/dl (8.5-10.1); Creatinine Clr Calc Pharmacy 91.2 ml/min; Est GFR (African American) 116.9; Est GFR (Non-African American) 100.8; Magnesium 1.9 mg/dl (1.8-2.4); Potassium 3.3 mmol/L (3.5-5.1)
[2018-12-20] MEDS ORDERED: POTASSIUM CHLORIDE 10 MEQ TABCR PO STA (07:49)
[2018-12-20] MEDS: ENOXAPARIN INJ 40 MG/0.4 ML SYR SQ SCH (08:40)
[2018-12-20] MEDS: POLYETHYLENE (MIRALAX) 17 GM PACK PO SCH ×2 (08:46→21:50)
[2018-12-20] MEDS ORDERED: BISACODYL 5 MG TABEC PO ONE ×2 (13:03→13:05)
--- NOTE | 2018-12-20 18:42 | XRay Report ---
XR abdomen 2V w PA chest CLINICAL HISTORY: 73 years-old Female presenting with abdominal pain for 3 days, no bowel movement, a bdominal distention, concern for pancreatitis or ileus. TECHNIQUE: PA view of the chest and supine and upright views of the abdomen were obtained. COMPARISON: CT of abdomen and pelvis from 12/17/2018. FINDINGS: Atherosclerosis of the aortic arch. Cardiac silhouette normal in size. Small bilateral pleural effusi ons and bibasilar opacities, likely atelectasis. No large pneumothorax. Moderate stool burden in the left colon. Nonobstructive bowel gas pattern. No gross pneumoperitoneum. Allowing for bowel gas and stool, no calcifications to suggest nephrolithiasis. Osseous structures normal. IMPRESSION: 1. Small bilateral pleural effusions and bibasilar atelectasis. 2. Moderate stool burden in the left colon. This could be compatible with constipation. 3. No convincing evidence of obstruction or ileus. Electronically signed by: Momo Markham M.D. 12/20/2018 6:40 PM
--- NOTE | 2018-12-20 22:21 | Hospitalist Progress Note ---
Date of Service December 20, 2018 Assessment & Plan (1) Acute pancreatitis: etiology uncertain. no obvious gallstones or sludge on imaging studies including MRCP. no etoh use. calcium normal. triglycerides normal. does use a statin at home but had been on such for 10-15 years -- doubt the statin caused the pancreatitis. has pancreatic divisum but uncertain if this was main culprit. I would have expected that if the divisum was main etiology she would have had pancreatitis much earlier in life. viral? passed gallstone? other? Appreciate [facility] GI consult. Outpatient endoscopic u/s planned. Lipase yesterday was completely normal. She has bloating on exam - uncertain if ileus related to her pancreatitis OR simply severe constipation. Abd x-rays obtained -- constipation only. Increase miralax to BID dosing. Dulcolax PO given earlier today. Fix low K. Ambulate. Just to be complete, and in light of leukocytosis - plan to obtain RUQ u/s to r/o small gallstones, cholecystitis, etc. Perhaps CT/MRI gave false results. Leave clears as is for diet. Cut fluid rate. Labs in am. (2) Hyperlipidemia: see above discussion hold statin for now (3) Hypokalemia: replace, repeat K level am mag level today normal (4) Constipation: x-rays with constipation increase miralax fix low K (5) DVT prophylaxis: lovenox daily ambulate limit narcotics hopefully can move bowels and advance diet tomorrow Subjective had migraine headache last pm -- this is now resolved. upper abd pain resolved. feels bloated but IS passing flatus. no stool in several days. clear liquid diet NOT causing any abd pain, nausea or emesis. ambulating the hallways. Review of Systems Constitutional: no fever and no chills Respiratory: no dyspnea and no dyspnea on exertion Cardiovascular: no chest pain Gastrointestinal: + bloating and + constipation; no abdominal pain, no nausea, no vomiting and no diarrhea/loose stools Physical Exam Constitutional: WD/WN, vitals as above + thin; no acute distress ENMT: external ear and nose normal, oropharynx normal Respiratory: normal respiratory effort, lungs clear to auscultation Cardiovascular: RRR, no murmur, no edema Heart Sounds: normal S1 and normal S2 Vessels: posterior tibial pulses present and dorsalis pedis pulses present; no JVD Gastrointestinal (Abdomen): normal bowel sounds, soft, nontender, no hepatosplenomegaly (bowel sounds normal ) Inspection/Auscultation: + abdomen distended (mild) Psychiatric: A+Ox3, euthymic affect Results & Data Vital Signs (Past 12 Hours) Vital Signs Temp Pulse Resp BP Pulse Ox 12/20/18 16:11 36.4 C L 64 18 131/72 96 Laboratory Results Laboratory Results - last 24 hr 12/20/18 12/20/18 04:58 04:58 WBC 13.19 H RBC 3.58 L Hgb 11.3 L Hct 32.7 L MCV 91.3 MCH 31.6 MCHC 34.6 RDW Std Deviation 46.1 RDW Coeff of Rodolfo 13.9 Plt Count 150 MPV 11.0 H Sodium 143 Potassium 3.3 L Chloride 115 H Carbon Dioxide 24 Anion Gap 4.0 BUN 19 H Creatinine 0.44 L Est Cr Clr Drug Dosing 91.2 Est GFR ( Amer) 116.9 Est GFR (Non-Af Amer) 100.8 BUN/Creatinine Ratio 43.9 H Glucose 107 H Calcium 7.7 L Magnesium 1.9 (1) Hyperlipidemia Hyperlipidemia type: mixed hyperlipidemia Qualified Code(s): E78.2 - Mixed hyperlipidemia (2) Acute pancreatitis Acute pancreatitis complication: unspecified Pancreatitis type: unspecified pancreatitis type Qualified Code(s): K85.90 - Acute pancreatitis without necrosis or infection, unspecified (3) Constipation Constipation type: other constipation type Qualified Code(s): K59.09 - Other constipation
[2018-12-21] MEDS: SODIUM CHLORIDE 0.9% 1000ML 1,000 ML IV SCH (02:58)
--- NOTE | 2018-12-21 06:44 | Ultrasound Report ---
US gallbladder HISTORY: 73 years-old Female pancreatitis; ?gallstones? sludge? Acute right upper quadrant and epiga stric abdominal pain COMPARISON: CT abdomen and pelvis 12/17/2018 TECHNIQUE: Multiple real-time sonographic images of the abdominal right upper quadrant were obtained assessing grayscale appearance and color flow FINDINGS: Trace perihepatic ascites. Mildly heterogeneous appearance of the pancreas with mild peripancreatic e danica. No peripancreatic fluid collection identified. Right pleural effusion incidentally noted. Liver is unremarkable without focal mass or intrahepatic biliary ductal dilation. Gallbladder wall is mildly thickened measuring up to 4 mm. No shadowing cholelithiasis. Patient was r ecently given pain medication, therefore sonographic Terrell sign was unable to be assessed. Common bi le duct is normal, 2 mm. Mild right-sided pelvocaliectasis without [place] hydronephrosis. Right perinephric edema. IMPRESSION: 1. Trace right upper quadrant ascites with small right pleural effusion. 2. Mild gallbladder wall thickening without cholelithiasis or biliary ductal dilation. Gallbladder wa ll thickening may be secondary to the patient's known pancreatitis. Correlate clinically. 3. No drainable fluid collection identified. The above report was generated using voice recognition software. It may contain grammatical, syntax o r spelling errors. Electronically signed by: Montana Khalil M.D. 12/21/2018 6:43 AM
[2018-12-21 07:29] LABS: Basophils # (auto) 0.01 K/uL (0-0.2); Basophils % (auto) 0.1 %; Eosinophils # (auto) 0.08 K/uL (0-0.5); Eosinophils % (auto) 0.8 %; Hematocrit (blood only) 32.5 % (37-47); Hemoglobin 10.9 g/dL (12.0-16.0); Immature Granulocytes # (auto) 0.03 K/uL (0.00-0.02); Immature Granulocytes % (auto) 0.3 %; Lymphocytes # (auto) 0.73 K/uL (1.2-3.4); Lymphocytes % (auto) 7.3 %; Mean Corpuscular Hgb Conc 33.5 g/dL (32-36); Mean Platelet Volume 11.5 fL (7.4-10.4); Monocytes # (auto) 1.08 K/uL (0.11-0.59); Monocytes % (auto) 10.8 %; Neutrophils # (auto) 8.11 K/uL (1.4-6.5); Neutrophils % (auto) 80.7 %; Platelet Count 153 K/uL (130-400); RDW Coefficient of Variation 13.6 % (11.5-14.5); RDW Standard Deviation 45.4 fL (36.4-46.3); Red Blood Count 3.57 M/uL (4.2-5.4); White Blood Count 10.04 K/uL (4.8-10.8)
[2018-12-21 08:08] LABS: Albumin Level 2.3 gm/dl (3.4-5.0); BUN Creatinine Ratio 31.5 (10-20); Creatinine Clr Calc Pharmacy 89.2 ml/min; Est GFR (Non-African American) 100.1; Potassium 3.2 mmol/L (3.5-5.1)
[2018-12-21 08:11] LABS: Albumin Globulin Ratio 0.8 (0.9-2); Bilirubin,Total 0.5 mg/dl (0.2-1); Globulin 2.9 gm/dl (2.5-4.0); Total Protein 5.2 gm/dl (6.4-8.2)
[2018-12-21] MEDS: ENOXAPARIN INJ 40 MG/0.4 ML SYR SQ SCH (08:19)
[2018-12-21] MEDS: POLYETHYLENE (MIRALAX) 17 GM PACK PO SCH ×2 (08:19→21:17)
[2018-12-21] MEDS ORDERED: POTASSIUM CHLORIDE 20 MEQ TABCR PO STA (10:18)
[2018-12-21] MEDS ORDERED: NSS + 20MEQ KCL 20 MEQ/1,000 ML BAG IV SCH (10:45)
--- NOTE | 2018-12-21 14:25 | Gastroenterology Progress Note ---
Date of Service December 21, 2018 Assessment & Plan (1) Acute pancreatitis: 73 year old female w/ abupt onset upper abdominal pain w/o nausea/vomiting. Lipase on admission was over 30,000 which normalized overnight to 300. Her LFTs have been unremarkable. Imaging w/ evidence of extensive fluid and infiltration on the pancreatic head. Imaging w/o gallstones, biliary dilation, mass/lesion of the pancreas. Etiology unclear, she does have a divisium but the abrupt normalization of lipase concerning for passing stone/sludge She is clinically improving, less abd pain, no nausea or vomiting. She is afebrile, w/ stable vital signs. Appetite back. She had developed abd pain, GI asked to evaluate. She notes after large BM this AM her symptoms resolved. Now tolerating diet, no nausea/vomiting - No GI contraindication to advancing to low fat diet - Would continue bowel regimen w/ miralax - Antiemetics PRN - Analgesia PRN - Would arrange inpatient vs outpatient general surgery evaluation given suspected gallstone panc - OP EGD/EUS in 6-8 weeks Thank you for allowing us to participate in the care of this patient. Please call with any acute changes, questions or concerns. Please see addendum below with additional recommendation from my supervising physician. Supervising Physician Co-Signing Physician Notes I performed a history and physical examination of the patient, including specifically on physical exam - soft, nontender abdomen. I have discussed the patient's management with Imelda. Please refer to the nurse practitioner's note for the documented findings and plan of care. Subjective Pt was seen and evaluated, chart reviewed. Notes she was having abd pain last evening and this AM until moved bowels. Three large movements. Nonbloody. Now feels better. Tolerating diet. no nausea, vomiting. Abd us w/ GB wall thickening but no stones Review of Systems Constitutional: no fever, no body aches and no weakness Respiratory: no cough, no dyspnea and no pain on inspiration Cardiovascular: no chest pain, no radiating jaw, neck or arm pain, no dyspnea on exertion and no palpitations Gastrointestinal: no abdominal pain, no early satiety, no vomiting and no pain with swallowing Physical Exam Constitutional: WD/WN, vitals as above Neck: trachea midline Respiratory: normal respiratory effort, lungs clear to auscultation Cardiovascular: RRR, no murmur, no edema Gastrointestinal (Abdomen): normal bowel sounds, soft, nontender, no hepatosplenomegaly Skin: no rashes, warm and dry Results & Data Vital Signs (Past 12 Hours) Vital Signs Temp Pulse Resp BP Pulse Ox 12/21/18 07:31 37.6 C H 68 20 113/68 90 (1) Acute pancreatitis Acute pancreatitis complication: unspecified Pancreatitis type: unspecified pancreatitis type Qualified Code(s): K85.90 - Acute pancreatitis without necrosis or infection, unspecified
--- NOTE | 2018-12-21 21:05 | Hospitalist Progress Note ---
Date of Service December 21, 2018 Assessment & Plan (1) Acute pancreatitis: etiology uncertain. no obvious gallstones or sludge on imaging studies including MRCP and gall bladder u/s. no etoh use. calcium normal. triglycerides normal. does use a statin at home but had been on such for 10-15 years -- doubt the statin caused the pancreatitis. has pancreatic divisum but uncertain if this was main culprit. viral? passed gallstone? other? Appreciate [facility] GI consult. Outpatient endoscopic u/s planned. Abnormal LFTs today - see below. (2) Abnormal LFTs: uncertain etiology. especially in light of no GI symptoms today. at minimum will repeat in the AM. (3) Hyperlipidemia: see above discussion hold statin for now (4) Hypokalemia: continue to replace and repeat level in am (5) Constipation: x-rays with constipation improved today continue miralax (6) DVT prophylaxis: lovenox daily diet as tolerated per GI Subjective patient feels better today. had several bowel movements. less distended. no nausea. no emesis. tolerating diet. no fevers or chills. Review of Systems Constitutional: no body aches, no fatigue and no anorexia Respiratory: no cough and no dyspnea Cardiovascular: no chest pain Physical Exam Constitutional: WD/WN, vitals as above + thin; no acute distress ENMT: external ear and nose normal, oropharynx normal Respiratory: normal respiratory effort, lungs clear to auscultation Cardiovascular: RRR, no murmur, no edema Heart Sounds: normal S1 and normal S2 Vessels: posterior tibial pulses present and dorsalis pedis pulses present; no JVD Gastrointestinal (Abdomen): normal bowel sounds, soft, nontender, no he patosplenomegaly (bowel sounds normal ) Psychiatric: A+Ox3, euthymic affect Results & Data Vital Signs (Past 12 Hours) Vital Signs Temp Pulse Resp BP Pulse Ox 12/21/18 16:47 36.5 C 67 19 104/61 95 Laboratory Results Laboratory Results - last 24 hr 12/21/18 12/21/18 07:07 07:07 WBC 10.04 RBC 3.57 L Hgb 10.9 L Hct 32.5 L MCV 91.0 MCH 30.5 MCHC 33.5 RDW Std Deviation 45.4 RDW Coeff of Rodolfo 13.6 Plt Count 153 MPV 11.5 H Immature Gran % (Auto) 0.3 Neut % (Auto) 80.7 Lymph % (Auto) 7.3 Phelps % (Auto) 10.8 Eos % (Auto) 0.8 Baso % (Auto) 0.1 Immature Gran # (Auto) 0.03 H Neut # (Auto) 8.11 H Lymph # (Auto) 0.73 L Phelps # (Auto) 1.08 H Eos # (Auto) 0.08 Baso # (Auto) 0.01 Sodium 143 Potassium 3.2 L Chloride 112 H Carbon Dioxide 24 Anion Gap 7.0 BUN 14 Creatinine 0.45 L Est Cr Clr Drug Dosing 89.2 Est GFR ( Amer) 116.0 Est GFR (Non-Af Amer) 100.1 BUN/Creatinine Ratio 31.5 H Glucose 114 H Calcium 8.0 L Total Bilirubin 0.5 AST 45 H ALT 41 Alkaline Phosphatase 123 H Total Protein 5.2 L Albumin 2.3 L Globulin 2.9 Albumin/Globulin Ratio 0.8 L (1) Hyperlipidemia Hyperlipidemia type: mixed hyperlipidemia Qualified Code(s): E78.2 - Mixed hyperlipidemia (2) Constipation Constipation type: other constipation type Qualified Code(s): K59.09 - Other constipation (3) Acute pancreatitis Acute pancreatitis complication: unspecified Pancreatitis type: unspecified pancreatitis type Qualified Code(s): K85.90 - Acute pancreatitis without necrosis or infection, unspecified
[2018-12-22] MEDS ORDERED: ACETAMINOPHEN 325 MG TAB PO PRN (07:13)
[2018-12-22] MEDS: ENOXAPARIN INJ 40 MG/0.4 ML SYR SQ SCH (08:22)
[2018-12-22 08:26] LABS: Albumin Globulin Ratio 0.7 (0.9-2); Albumin Level 2.2 gm/dl (3.4-5.0); BUN Creatinine Ratio 14.4 (10-20); Bilirubin,Total 0.4 mg/dl (0.2-1); Est GFR (African American) 106.1; Est GFR (Non-African American) 91.6; Magnesium 1.8 mg/dl (1.8-2.4); Potassium 3.1 mmol/L (3.5-5.1); Total Protein 5.2 gm/dl (6.4-8.2)
[2018-12-22] MEDS ORDERED: POTASSIUM CHLORIDE 10 MEQ TABCR PO STA ×2 (09:08→16:49)
[2018-12-22] MEDS ORDERED: POTASSIUM CHLORIDE / WTR 10 MEQ/100 ML PLCT IV ONE (09:09)
[2018-12-22] MEDS: POLYETHYLENE (MIRALAX) 17 GM PACK PO SCH ×2 (10:50→18:06)
--- NOTE | 2018-12-22 11:28 | Gastroenterology Progress Note ---
Date of Service December 22, 2018 Assessment & Plan (1) Acute pancreatitis: 73 year old female w/ abupt onset upper abdominal pain w/o nausea/vomiting. Lipase on admission was over 30,000 which normalized overnight to 300. Her LFTs have been unremarkable. Imaging w/ evidence of extensive fluid and infiltration on the pancreatic head. Imaging w/o gallstones, biliary dilation, mass/lesion of the pancreas. Etiology unclear, she does have a divisium but the abrupt normalization of lipase concerning for passing stone/sludgeShe is clinically improving, less abd pain, no nausea or vomiting. She is afebrile, w/ stable vital signs. Appetite back. She had developed abd pain, GI asked to evaluate. She notes after large BM this AM her symptoms resolved. Now tolerating diet, no nausea/vomiting Overnight transaminases became elevated but is feeling well - NPO for ABD US to check for any biliary changes - if ABD US unchanged, No GI contraindication to advancing to low fat diet or discharge home - If ABD US is unchanged she will need LFTs as an OP on Wednesday - Would continue bowel regimen w/ miralax - Antiemetics PRN - Analgesia PRN - Would arrange inpatient vs outpatient general surgery evaluation given suspected gallstone panc - OP EGD/EUS in 6-8 weeks Thank you for allowing us to participate in the care of this patient. Please call with any acute changes, questions or concerns. Please see addendum below with additional recommendation from my supervising physician. Supervising Physician Co-Signing Physician Notes I performed a history and physical examination of the patient, including specifically on physical exam - soft, nontender abdomen. I have discussed the patient's management with Francesca. Please refer to the nurse practitioner's note for the documented findings and plan of care. Patient with acute pancreatitis but no biliary etiology identified on MRCP, ? divism, she was doing fine but had an episode of abdominal pain which resolved spontaneously, her LFTs are now rising but very mildly. Plan: Obtain US abd today to check CBD size. If LFTs continue to rise tomorrow then will arrange EUS tomorrow, otherwise if they trend down then EUS as OP. Subjective Pt was seen and evaluated, chart reviewed. Bump in LFTs overnight. Asymptomatic. Was tolerating diet. Review of Systems Constitutional: no fever and no body aches Respiratory: no cough and no dyspnea Cardiovascular: no chest pain, no radiating jaw, neck or arm pain and no dyspnea on exertion Gastrointestinal: no abdominal pain, no early satiety and no vomiting Physical Exam Constitutional: WD/WN, vitals as above Neck: trachea midline Respiratory: normal respiratory effort, lungs clear to auscultation Cardiovascular: RRR, no murmur, no edema Gastrointestinal (Abdomen): Percussion/Palpation: abdomen soft; abdomen nontender Results & Data Vital Signs (Past 12 Hours) Vital Signs Temp Pulse Resp BP Pulse Ox 12/22/18 07:37 36.4 C L 71 18 128/69 92 12/21/18 23:37 36.8 C 69 18 113/67 93 Laboratory Results 12/22/18 Range/Units 07:25 Sodium 143 (136-145) mmol/L Potassium 3.1 L (3.5-5.1) mmol/L Chloride 111 H (98-107) mmol/L Carbon Dioxide 25 (21-32) mmol/L Anion Gap 7.0 (3-11) BUN 9 D (7-18) mg/dl Creatinine 0.59 L (0.6-1.2) mg/dl Est Cr Clr Drug Dosing 68.0 ml/min Est GFR ( Amer) 106.1 Est GFR (Non-Af Amer) 91.6 BUN/Creatinine Ratio 14.4 (10-20) Glucose 129 H (70-99) mg/dl Calcium 8.0 L (8.5-10.1) mg/dl Magnesium 1.8 (1.8-2.4) mg/dl Total Bilirubin 0.4 (0.2-1) mg/dl AST 107 H (15-37) U/L ALT 98 H (12-78) U/L Alkaline Phosphatase 160 H (45-117) U/L Total Protein 5.2 L (6.4-8.2) gm/dl Albumin 2.2 L (3.4-5.0) gm/dl Globulin 3.0 (2.5-4.0) gm/dl Albumin/Globulin Ratio 0.7 L (0.9-2) (1) Acute pancreatitis Acute pancreatitis complication: unspecified Pancreatitis type: unspecified pancreatitis type Qualified Code(s): K85.90 - Acute pancreatitis without necrosis or infection, unspecified
--- NOTE | 2018-12-22 15:25 | Ultrasound Report ---
Biliary ultrasound CLINICAL HISTORY: Pancreatitis COMPARISON STUDY: 12/20/2018 FINDINGS: No pancreatic masses are visualized. There is no pancreatic ductal dilatation. No focal hepatic masses are visualized. There is a small amount of perihepatic fluid. There is slight prominence of the right renal pelvis. There is a right pleural effusion. No gallstones are visualized. There is mild gallbladder wall thickening and trace pericholecystic flu id. There is no ductal dilatation. The common bile duct measures 4 mm. There is no significant right-sided hydronephrosis IMPRESSION: 1. No pancreatic masses identified. No focal peripancreatic fluid collections are evident 2. No evidence of intra or extrahepatic biliary ductal dilatation 3. Small amount of perihepatic fluid. 4. Right pleural effusion. 5. Mild gallbladder wall thickening. No gallstones identified. Electronically signed by: Jonas Sahu M.D. 12/22/2018 3:24 PM
[2018-12-22] MEDS ORDERED: FUROSEMIDE 20 MG TAB PO STA (16:50)
[2018-12-22] MEDS: MAGNESIUM OXIDE 400 MG TAB PO SCH ×2 (18:05→20:26)
--- NOTE | 2018-12-22 19:45 | Hospitalist Progress Note ---
Date of Service December 22, 2018 Assessment & Plan (1) Acute pancreatitis: RESOLVED. etiology uncertain. no obvious gallstones or sludge on imaging studies including MRCP. no etoh use. calcium normal. triglycerides normal. had been on statin at home but had been on such for 10-15 years -- doubt the statin caused the pancreatitis. has pancreatic divisum but uncertain if this was main culprit. viral? passed gallstone? other? [facility] In light of worsening abnormal LFTs today patient to be made NPO after MN for possible endoscopic u/s tomorrow by [facility] GI if LFTs rise further. If LFTs improved can d/c home tomorrow with outpatient endoscopic u/s. (2) Abnormal LFTs: see discussion above. etiology? repeat LFTs in am. (3) Hyperlipidemia: see above discussion hold statin for now (4) Hypokalemia: ongoing replace again (IV/PO), repeat K level am (5) Constipation: improved cont miralax (6) DVT prophylaxis: lovenox daily updated by phone 12/22/18 Subjective patient feels very well. eating fine w/o any GI symptoms. ambulating. she does feel edematous but denies dyspnea or MATHIAS. no fevers or chills. Review of Systems Constitutional: no fatigue and no anorexia Respiratory: no dyspnea and no dyspnea on exertion Cardiovascular: + edema; no chest pain, no orthopnea and no paroxysmal nocturnal dyspnea Gastrointestinal: no abdominal pain, no nausea, no vomiting, no constipation, no diarrhea/loose stools and no blood in stools Physical Exam Constitutional: WD/WN, vitals as above + thin; no acute distress ENMT: external ear and nose normal, oropharynx normal Respiratory: normal respiratory effort, lungs clear to auscultation Cardiovascular: Rate/Rhythm: regular rate and regular rhythm Heart Sounds: normal S1 and normal S2; no murmur Vessels: + JVD (mild), posterior tibial pulses present and dorsalis pedis pulses present Extremities: + edema (<1+ b/l ) Gastrointestinal (Abdomen): normal bowel sounds, soft, nontender, no hepatosplenomegaly (bowel sounds normal ) Psychiatric: A+Ox3, euthymic affect Results & Data Laboratory Results Laboratory Results - last 24 hr 12/22/18 07:25 Sodium 143 Potassium 3.1 L Chloride 111 H Carbon Dioxide 25 Anion Gap 7.0 BUN 9 D Creatinine 0.59 L Est Cr Clr Drug Dosing 68.0 Est GFR ( Amer) 106.1 Est GFR (Non-Af Amer) 91.6 BUN/Creatinine Ratio 14.4 Glucose 129 H Calcium 8.0 L Magnesium 1.8 Total Bilirubin 0.4 AST 107 H ALT 98 H Alkaline Phosphatase 160 H Total Protein 5.2 L Albumin 2.2 L Globulin 3.0 Albumin/Globulin Ratio 0.7 L (1) Hyperlipidemia Hyperlipidemia type: mixed hyperlipidemia Qualified Code(s): E78.2 - Mixed hyperlipidemia (2) Constipation Constipation type: other constipation type Qualified Code(s): K59.09 - Other constipation (3) Acute pancreatitis Acute pancreatitis complication: unspecified Pancreatitis type: unspecified pancreatitis type Qualified Code(s): K85.90 - Acute pancreatitis without necrosis or infection, unspecified
[2018-12-23 08:17] LABS: Albumin Level 2.4 gm/dl (3.4-5.0); BUN Creatinine Ratio 14.6 (10-20); Bilirubin Direct 0.1 mg/dl (0-0.2); Calcium 8.7 mg/dl (8.5-10.1); Creatinine Clr Calc Pharmacy 84.7 ml/min; Est GFR (African American) 109.3; Est GFR (Non-African American) 94.3; Magnesium 1.8 mg/dl (1.8-2.4); Potassium 3.8 mmol/L (3.5-5.1)
[2018-12-23 08:22] LABS: Bilirubin,Total 0.5 mg/dl (0.2-1); Total Protein 5.7 gm/dl (6.4-8.2)
--- NOTE | 2018-12-23 08:35 | Gastroenterology Progress Note ---
Date of Service December 23, 2018 Assessment & Plan (1) Acute pancreatitis: 73 year old female w/ abupt onset upper abdominal pain w/o nausea/vomiting. Lipase on admission was over 30,000 which normalized overnight to 300. Her LFTs have been unremarkable. Imaging w/ evidence of extensive fluid and infiltration on the pancreatic head. Imaging w/o gallstones, biliary dilation, mass/lesion of the pancreas. Etiology unclear, she does have a divisium but the abrupt normalization of lipase concerning for passing stone/sludgeShe is clinically improving, less abd pain, no nausea or vomiting. She is afebrile, w/ stable vital signs. Appetite back. She had developed abd pain, GI asked to evaluate. She notes after large BM this AM her symptoms resolved. Now tolerating diet, no nausea/vomiting Overnight transaminases became elevated but is feeling well. AST/ALT stable w/ slightly increased ALKP. Will try to arrange inpatient EUS for evaluation today - NPO - Tentative plan for EUS in [place] Thank you for allowing us to participate in the care of this patient. Please call with any acute changes, questions or concerns. Please see addendum below with additional recommendation from my supervising physician. Supervising Physician Co-Signing Physician Notes I saw and evaluated the patient. Due to recent elevation of her liver enzymes we are planning to do further evaluation today with upper endoscopy, endoscopic ultrasound and possible ERCP. Physical examination No obvious distress No scleral icterus noted No abdominal tenderness noted today Impression: Patient presented with abdominal pain and what appears to be gallstone pancreatitis. We are planning to do upper endoscopy and endoscopic ultrasound today due to recent elevation of her liver enzymes. If the gallstone is found in the common bile duct we will proceed with ERCP. We discussed the risks of the procedures to include bleeding, infection, perforation, pancreatitis and failed biliary cannulation. Subjective Pt was seen and evaluated, chart reviewed. No acute events noted overnight. Is NPO for ?EUs today. Offers no complaints other than MACHADO. No fever, chills, CP, SOB. Review of Systems Constitutional: no fever, no body aches and no weight loss Respiratory: no cough, no dyspnea and no wheezing Cardiovascular: no chest pain, no radiating jaw, neck or arm pain and no dyspnea on exertion Gastrointestinal: no abdominal pain, no early satiety and no vomiting Neurologic: + headache(s) Physical Exam Constitutional: WD/WN, vitals as above Respiratory: normal respiratory effort Cardiovascular: Rate/Rhythm: regular rate and regular rhythm Extremities: no edema Gastrointestinal (Abdomen): Percussion/Palpation: abdomen soft; abdomen nontender Results & Data Vital Signs (Past 12 Hours) Vital Signs Temp Pulse Resp BP BP Pulse Ox 12/23/18 07:20 36.7 C 56 L 20 128/72 95 12/23/18 00:52 37.2 C 60 18 128/70 95 (1) Acute pancreatitis Acute pancreatitis complication: unspecified Pancreatitis type: unspecified pancreatitis type Qualified Code(s): K85.90 - Acute pancreatitis without necrosis or infection, unspecified
[2018-12-23] MEDS ORDERED: POTASSIUM CHLORIDE 20 MEQ TABCR PO SCH (09:00)
[2018-12-23] MEDS ORDERED: FUROSEMIDE 20 MG TAB PO SCH (09:00)
[2018-12-23] MEDS: ENOXAPARIN INJ 40 MG/0.4 ML SYR SQ SCH (09:22)
[2018-12-23] MEDS: MAGNESIUM OXIDE 400 MG TAB PO SCH (09:22)
--- NOTE | 2018-12-23 09:22 | Anesthesiology Consultation ---
Date of Service December 23, 2018 Assessment & Plan Chart Review Chart Review: Acceptable Risk for Surgery and Patient NOT seen in Pre Admission Testing History Surgery Operation Date: 12/23/18 13:15 Proposed Procedures p Upper Endoscopic Ultrasonography - Rissa Forman Height/Weight Height: 5 ft 5 in Weight: 57.8 kg Allergies Allergy/AdvReac Type Severity Reaction Status Date / Time No Known Allergies Allergy Unverified 12/17/18 21:49 Medications Home Medications Medication Instructions Recorded Confirmed Last Taken aspirin [Aspir-81] 81 mg PO Q2D 12/17/18 12/17/18 Unknown cholecalciferol (vitamin D3) 400 unit PO DAILY 12/17/18 12/17/18 Unknown coenzyme Q10 [Co Q-10] 100 mg PO DAILY 12/17/18 12/17/18 Unknown lovastatin 20 mg PO DAILY 12/17/18 12/17/18 Unknown multivitamin [Multiple Vitamins] 1 tab PO DAILY 12/17/18 12/17/18 Unknown Active Medications Generic Name Dose Route Start Last Admin Trade Name Freq PRN Reason Stop Dose Admin Acetaminophen 650 mg 12/22/18 07:13 12/23/18 06:39 Tylenol PO 01/21/19 07:12 650 mg Q4H PRN Administration Pain or Fever Enoxaparin Sodium 40 mg 12/18/18 08:00 12/23/18 09:22 Lovenox SQ 01/17/19 07:59 40 mg Q24H CURTIS Administration Hydromorphone HCl 0.5 mg 12/18/18 00:01 12/20/18 14:33 Dilaudid IV 12/31/18 23:54 0.5 mg Q3H PRN Administration Pain Magnesium Oxide 400 mg 12/22/18 17:00 12/23/18 09:22 Mag-Ox PO 01/21/19 16:59 400 mg BID CURTIS Administration Ondansetron HCl 4 mg 12/18/18 01:42 12/18/18 17:51 Zofran IV 01/17/19 01:41 4 mg Q6H PRN Administration Nausea Polyethylene Glycol 17 gm 12/20/18 21:00 12/23/18 09:23 Miralax Powder Packet PO 01/19/19 20:59 Not Given BID CURTIS Past Medical History Medical History Hyperlipidemia Pancreatitis [place] teeth removed Past Family History Family History Other Pancreatic cancer Prostate cancer Past Surgical History Surgical History S/P cataract surgery Hx of tubal ligation S/P tonsillectomy Social History Smoking Status: Never smoker Hx Alcohol Use: Yes Alcohol type: wine alcohol intake frequency: holidays/special occasions only Hx Substance Use: No Physical Exam Vital Signs Last Vital Signs Temp 36.7 C 12/23/18 07:20 Pulse 56 L 12/23/18 07:20 Resp 20 12/23/18 07:20 BP 128/72 12/23/18 07:20 Pulse Ox 95 12/23/18 07:20 Testing Electrocardiogram Date: 12/17/18 Normal sinus rhythm Nonspecific ST and T wave abnormality Abnormal ECG No previous ECGs available Confirmed by Callum Jiménez ([id number]) on 12/18/2018 10:20:56 PM Other Testing Laboratory Tests 10/18/18 10/18/18 12/18/18 08:10 08:10 05:31 WBC Hgb Hct Plt Count PT 11.1 INR 1.1 Sodium Potassium Chloride Carbon Dioxide BUN Creatinine Glucose Hemoglobin A1c 6.0 H TSH 3.280 12/21/18 12/23/18 07:07 07:27 WBC 10.04 Hgb 10.9 L Hct 32.5 L Plt Count 153 PT INR Sodium 144 Potassium 3.8 D Chloride 108 H Carbon Dioxide 27 BUN 8 Creatinine 0.54 L Glucose 94 Hemoglobin A1c TSH
[2018-12-23] MEDS: POLYETHYLENE (MIRALAX) 17 GM PACK PO SCH (09:23)
[2018-12-23] MEDS ORDERED: INDOMETHACIN 50 MG SUPP PR STA (15:05)
[2018-12-23] MEDS ORDERED: INDOMETHACIN 50 MG SUPP PR ONE (15:08)
[2018-12-23] MEDS ORDERED: ePHEDrine sulfate 50 MG/ML AMP IV PRN (15:08)
[2018-12-23] MEDS ORDERED: ONDANSETRON INJ 2 MG/ML 2 ML VIAL IV PRN (15:08)
[2018-12-23] MEDS ORDERED: ATROPINE SULFATE 0.1 MG/ML 10ML SYR IV PRN (15:08)
[2018-12-23] MEDS ORDERED: fentaNYL citrate 100 MCG/2 ML VIAL IV PRN (15:08)
[2018-12-23] MEDS ORDERED: PROPOFOL IV EMULSION 10 MG/ML 20 ML VIAL IV ONE (15:12)
[2018-12-23] MEDS ORDERED: MIDAZOLAM HCL 1 MG/ML 2ML VIAL ONE (15:12)
[2018-12-23] MEDS ORDERED: fentaNYL citrate 100 MCG/2 ML VIAL ONE (15:12)
[2018-12-23] MEDS ORDERED: LIDOCAINE HCL 2% 2 ML VIAL/AMP(20MG/ML) INFIL ONE (15:12)
[2018-12-23] MEDS ORDERED: ONDANSETRON INJ 2 MG/ML 2 ML VIAL ONE (15:12)
[2018-12-23] MEDS ORDERED: SUCCINYLCHOLINE CHLORIDE 20 MG/ML 10 ML VIAL ONE (15:12)
--- NOTE | 2018-12-23 15:49 | GI REPORT ---
Patient Name: Jelly Gutierres Procedure Date: 12/23/2018 3:30 PM Date of : 1945 Admit Type: Inpatient Age: 73 Gender: Female Attending MD: Rissa Forman DO Procedure: Upper GI endoscopy Providers: Rissa Forman DO Referring MD: Davy Lucero Indications: Epigastric abdominal pain Medicines: General Anesthesia Complications: No immediate complications. Estimated blood loss: Minimal. Estimated Blood Loss: Estimated blood loss was minimal. Procedure: Pre-Anesthesia Assessment: - Prior to the procedure, a History and Physical was performed, and patient medications, allergies and sensitivities were reviewed. The patient's tolerance of previous anesthesia was reviewed. - The risks and benefits of the procedure and the sedation options and risks were discussed with the patient. All questions were answered and informed consent was obtained. - Patient identification and proposed procedure were verified prior to the procedure by the physician, the nurse and the greenstone polisher operator. The procedure was verified in the procedure room. - Pre-procedure physical examination revealed no contraindications to sedation. - ASA Grade Assessment: III - A patient with severe systemic disease. - After reviewing the risks and benefits, the patient was deemed in satisfactory condition to undergo the procedure. - The anesthesia plan was to use general anesthesia. - Immediately prior to administration of medications, the patient was re-assessed for adequacy to receive sedatives. - The heart rate, respiratory rate, oxygen saturations, blood pressure, adequacy of pulmonary ventilation, and response to care were monitored throughout the procedure. - The physical status of the patient was re-assessed after the procedure. After obtaining informed consent, the endoscope was passed under direct vision. Throughout the procedure, the patient's blood pressure, pulse, and oxygen saturations were monitored continuously. The Endoscope was introduced through the mouth, and advanced to the third part of duodenum. The upper GI endoscopy was accomplished without difficulty. The patient tolerated the procedure well. Findings: The examined esophagus was normal. The Z-line was regular and was found 38 cm from the incisors. Diffuse moderate inflammation characterized by congestion (edema), erosions, erythema and granularity was found in the entire examined stomach. Biopsies were taken with a cold forceps for histology. Estimated blood loss was minimal. The examined duodenum was normal. Impression: - Normal esophagus. - Z-line regular, 38 cm from the incisors. - Diffuse gastritis lilkely related to recent pabcreatitis. Biopsied. - Normal examined duodenum. Recommendation: - Perform an upper endoscopic ultrasound (UEUS) today. - Await pathology results. - Use Prilosec (omeprazole) 20 mg PO daily for 6 weeks. Rissa Forman D.O. Rissa Forman, 12/23/2018 3:48:56 PM This report has been signed electronically. Note Initiated On: 12/23/2018 3:30 PM Number of Addenda: 0 I attest to the content of the Intraoperative Record and orders documented therein, exceptions below {[id number]}
[2018-12-23] MEDS ORDERED: SODIUM CHLORIDE 0.9% INJ 10 ML VIAL ONE (15:53)
[2018-12-23] MEDS ORDERED: ePHEDrine sulfate 50 MG/ML AMP ONE (15:53)
--- NOTE | 2018-12-23 16:13 | GI REPORT ---
Patient Name: Jelly Gutierres Procedure Date: 12/23/2018 3:32 PM Date of : 1945 Admit Type: Inpatient Age: 73 Gender: Female Attending MD: Rissa Forman DO Procedure: Upper EUS Providers: Rissa Forman DO Referring MD: Davy Lucero Indications: Elevated lipase, Elevated liver enzymes, Suspected choledocholithiasis Medicines: General Anesthesia Complications: No immediate complications. Estimated blood loss: Minimal. Estimated Blood Loss: Estimated blood loss was minimal. Procedure: Pre-Anesthesia Assessment: - Prior to the procedure, a History and Physical was performed, and patient medications, allergies and sensitivities were reviewed. The patient's tolerance of previous anesthesia was reviewed. - Prior to the procedure, a History and Physical was performed, and patient medications, allergies and sensitivities were reviewed. The patient's tolerance of previous anesthesia was reviewed. - The risks and benefits of the procedure and the sedation options and risks were discussed with the patient. All questions were answered and informed consent was obtained. - Patient identification and proposed procedure were verified prior to the procedure by the physician, the nurse and the creamery worker. The procedure was verified in the procedure room. - Pre-procedure physical examination revealed no contraindications to sedation. - ASA Grade Assessment: III - A patient with severe systemic disease. - After reviewing the risks and benefits, the patient was deemed in satisfactory condition to undergo the procedure. - The anesthesia plan was to use general anesthesia. - Immediately prior to administration of medications, the patient was re-assessed for adequacy to receive sedatives. - The physical status of the patient was re-assessed after the procedure. After obtaining informed consent, the endoscope was passed under direct vision. Throughout the procedure, the patient's blood pressure, pulse, and oxygen saturations were monitored continuously. The Endosonoscope was introduced through the mouth, and advanced to the third part of duodenum. The upper EUS was accomplished without difficulty. The patient tolerated the procedure well. Findings: ENDOSONOGRAPHIC FINDING: : There was no sign of significant endosonographic abnormality in the ampulla. No masses were identified. There was no sign of significant endosonographic abnormality in the common bile duct. The maximum diameter of the duct was 4 mm. No stones, no biliary sludge and ducts of normal caliber were identified. Seveal small stones were visualized endosonographically in the gallbladder. They were hyperechoic and characterized by shadowing. The gallbladder wall was thickened meauring 2.3 mm and also notable for pericholecystic fluid, There was no sign of significant endosonographic abnormality in the visualized portion of the liver. Homogeneous parenchyma was identified. Pancreatic parenchymal abnormalities were noted in the pancreatic head. These consisted of lobularity. There was no sign of significant endosonographic abnormality in the pancreatic body, pancreatic tail, pancreatic neck and main pancreatic duct. The pancreatic duct measured up to 1 mm in diameter. The pancreatic duct was thin in caliber. No lymphadenopathy seen. There was no sign of significant endosonographic abnormality in the left adrenal gland. No adrenal gland enlargement was identified. Impression: - There was no sign of significant pathology in the ampulla. - There was no sign of significant pathology in the common bile duct. - Seeveral stones were visualized endosonographically in the gallbladder. - There was no evidence of significant pathology in the visualized portion of the liver. - Pancreatic parenchymal abnormalities consisting of lobularity were noted in the pancreatic head. This is consistent with resolving pancreatitis. - There was no sign of significant pathology in the pancreatic body, pancreatic tail, pancreatic neck and main pancreatic duct. - Endosonographic images of the left adrenal gland were unremarkable. - No specimens collected. Recommendation: - [facility]. - Cholecystecomy per general surgery. - Observe patient's clinical course. Rissa Forman D.O. Rissa Forman DO 12/23/2018 4:12:59 PM This report has been signed electronically. Note Initiated On: 12/23/2018 3:32 PM Number of Addenda: 0 I attest to the content of the Intraoperative Record and orders documented therein, exceptions below {[id number]}
--- NOTE | 2018-12-23 16:14 | Post Operative Brief Note ---
Immediate Post Op Note v1 Date of Surgery December 23, 2018 Pre & Post Diagnosis Operation Date: 12/23/18 13:15 Pre-Op Diagnosis: suspected gallstones Post-Op Diagnosis: cholelithiasis, no stones in common bile duct, resolving pancreatitis, gastritis Procedure Operation Date: 12/23/18 13:15 Actual Procedures p Upper Endoscopic Ultrasonography, gastroesophagoduodenoscopy, with biopsies - Rissa Forman Surgeon Rissa Forman Adjunct Instructor Chemistry none Estimated Blood Loss 0 Findings Consistent with Post-Op Diagnosis
--- NOTE | 2018-12-23 16:28 | Communication Note ---
Date of Service: December 23, 2018 The patient underwent upper endoscopy and endoscopic ultrasound today due to the history of elevated liver enzymes and pancreatitis. Findings Diffuse gastritis Normal-appearing common bile duct Resolving pancreatitis localizing to the pancreatic head Call bladder wall thickening, small gallstones in the gallbladder neck and pericholecystic fluid Recommendations Protonix 40 mg 1 times daily for 4 weeks Cholecystectomy per general surgery Advance diet as tolerated Please call with any questions or concerns
[2018-12-23] MEDS ORDERED: PANTOprazole 40 MG TAB PO SCH (16:30)
--- NOTE | 2018-12-23 16:57 | Anesthesiology Progress Note ---
Date of Service December 23, 2018 Anesthesia Post Procedure Vital Signs Vital Signs: Temp Pulse Pulse Resp BP BP Pulse Ox 12/23/18 16:40 67 17 160/90 H 100 12/23/18 16:30 60 16 156/82 H 99 12/23/18 16:24 36.7 C 71 15 142/79 H 99 12/23/18 14:52 37.2 C 57 L 16 154/76 H 97 12/23/18 07:20 36.7 C 56 L 20 128/72 95 12/23/18 00:52 37.2 C 60 18 128/70 95 Pain Intensity Bilateral Abdomen: Pain Intensity: 2 Transfer of Care Handoff Completed per policy Notes Mental Status: alert / awake / arousable Patient Amnestic to Procedure: Yes Nausea / Vomiting: adequately controlled Pain: adequately controlled Airway Patency, RR, SpO2: stable & adequate BP & HR: stable & adequate Hydration State: stable & adequate Anesthetic Complications: no major complications apparent and Pt Satisfied with anesthetic care
--- NOTE | 2019-01-01 20:38 | Discharge Summary ---
Date of Service date of admission - December 17, 2018 date of discharge - December 23, 2018 Admission HPI Per Admitting Provider 73-year-old female with a history of elevated cholesterol presents to the hospital after experiencing abdominal pain throughout the day. She stated that the abdominal pain started early this morning and progressively got worse throughout the day. She states that the pain is a dull pain and it became very severe after eating lunch this afternoon. She denies fevers, chills, nausea, vomiting, diarrhea. Patient denies a history of pancreatitis. She denies a history of gallstones. She does endorse eating more fatty foods latelywas recently on vacation. Principal Diagnosis acute pancreatitis - suspect due to passed gallstone Discharge Exam Constitutional WD/WN, vitals as above + thin; no acute distress ENMT external ear and nose normal, oropharynx normal Respiratory normal respiratory effort, lungs clear to auscultation Cardiovascular RRR, no murmur, no edema Rate/Rhythm: regular rate and regular rhythm Heart Sounds: normal S1 and normal S2; no murmur Vessels: posterior tibial pulses present and dorsalis pedis pulses present Extremities: no edema Gastrointestinal (Abdomen) normal bowel sounds, soft, nontender, no hepatosplenomegaly (bowel sounds normal ) Psychiatric A+Ox3, euthymic affect Discharge Data Allergies Allergy/AdvReac Type Severity Reaction Status Date / Time No Known Allergies Allergy Unverified 12/29/18 13:47 Consultations [facility] Procedures Performed Operation Date: 12/23/18 13:15 Actual Procedures Upper Endoscopic Ultrasonography, gastroesophagoduodenoscopy, with biopsies - Rissa Forman DO Impression: - Normal esophagus. - Z-line regular, 38 cm from the incisors. - Diffuse gastritis likely related to recent pancreatitis. Biopsied. - Normal examined duodenum. Recommend: - Perform an upper endoscopic ultrasound (UEUS) today. - Await pathology results. - Use Prilosec (omeprazole) 20 mg PO daily for 6 weeks. UEUS - Normal-appearing common bile duct. Resolving pancreatitis localizing to the pancreatic head. Gall bladder wall thickening, small gallstones in the gallbladder neck and pericholecystic fluid. Ordered Studies 1. CT abd/pelvis - IMPRESSION: 1. Infiltration adjacent to the pancreatic head, second portion of the duodenum and within the mesentery. The findings raise the possibility of acute pancreatitis or peptic ulcer disease. Evaluation is difficult given the lack of IV contrast. If persistent abdominal pain, a contrast-enhanced CT is recommended. 2. Mildly dilated stool-filled small bowel without transition point to suggest a bowel obstruction. Moderate amount of stool within the colon. 2. MRCP - IMPRESSION: 1. No biliary ductal dilatation. No common bile duct calculi. 2. Extensive peripancreatic infiltration and fluid consistent with acute pancreatitis. 3. Suspected pancreas divisum. 3. ultrasound gall bladder - 12/20/18 - IMPRESSION: 1. Trace right upper quadrant ascites with small right pleural effusion. 2. Mild gallbladder wall thickening without cholelithiasis or biliary ductal dilation. Gallbladder wall thickening may be secondary to the patient's known pancreatitis. Correlate clinically. 3. No drainable fluid collection identified. 4. ultrasound gall bladder - 12/22/18 - IMPRESSION: 1. No pancreatic masses identified. No focal peripancreatic fluid collections are evident 2. No evidence of intra or extrahepatic biliary ductal dilatation 3. Small amount of perihepatic fluid. 4. Right pleural effusion. 5. Mild gallbladder wall thickening. No gallstones identified. Hospital Course (1) Acute pancreatitis: RESOLVED clinically and biochemically. In fact her lipase returned to normal within 48 hours. Etiology was initially uncertain. There were no obvious gallstones or sludge on imaging studies including MRCP. No etoh use. Calcium normal. Triglycerides normal. Had been on statin at home but had been on such for 10-15 years -- doubt the statin caused the pancreatitis. Pancreatic divisum was seen on MRCP but suspect it was not the main culprit in her presentation. About custodial through her hospital stay her LFTs began to rise. Gall bladder ultrasound showed gall bladder wall thickening but no other signs of acute cholecystitis or gallstones. [facility] was consulted, and in light of the uncertainties surrounding her pancreatitis and the abnormal LFTs, Dr Rissa Forman performed EGD/EUS. This showed gastritis, gall bladder wall thickening, and gallstones. Thus, following an extensive work-up, the etiology for the acute pancreatitis was postulated to be a passed gallstone. At discharge she was advised to follow a low-fat diet and to have consultation with general surgery for consideration of elective cholecystectomy. To be safe we recommended holding the statin for now. She was tolerating a diet at time of discharge. (2) Abnormal LFTs: see discussion above. (3) Hyperlipidemia: see above discussion hold statin for now (4) Hypokalemia: replaced IV/PO while here; discharge potassium was normal. (5) Constipation: improved cont miralax (6) Gastritis: as seen on EGD/EUS. PPI recommended for 6 weeks. Total Time Total Time Spent Total Time Spent (In Minutes): 45 Total Time Includes: Examination of the Patient, Discharge Planning, Medication Reconciliation and Communication With Other Providers Discharge Plan Discharge Items Patient Disposition: Home - Self-Care Reason For Visit: PANCREATITIS Discharge Diagnosis: suspected gallstone pancreatitis. gastritis. Discharge Goals: Decrease discomfort, Diagnostic testing and Therapeutic intervention Activity: As commented below Activity Comment: take it easy the next 2-3 days then gradually increase activities Lifting: Gradually increase as tolerated Exercise/Sports: Gradually increase as tolerated Driving/Machine Use: Resume 1 day after discharge Non-emergency contact: Primary Care Provider Call non-emergency contact if: you have any medication questions, your symptoms worsen, your pain is not controlled, your pain is worsening, your pain is concerning for you and your temperature is above 100.5 Follow-up/Referrals: Je Pyle MD, FACS [Physician] - (see Dr Pyle or any of the general surgery providers - [facility]) Davy Pacheco [Primary Care Provider] - (please see Dr. Pacheco within 1 week) Diet: Full liquid and Low Fat Addtl Provider Instructions: From Kvng Patel, hospitalist- You were admitted to the hospital with acute pancreatitis. Your lipase (pancrease level) normalized very quickly. The exact cause of the pancreatitis was uncertain. CAT scan, MRI, and ultrasound were unrevealing. Specifically we did not see any gallstones on these tests. We did find that you have something called "pancreatic divisum" - a normal variant of your pancreatic anatomy that you were born with. However, we did not feel that this caused your pancreatitis. Later in your stay your liver function tests (LFTs) began to rise. Therefore, [facility] performed an "endoscopic ultrasound" of your gall bladder, pancreas, and bile ducts. This DID reveal that you indeed have gallstones. It also showed an irritated stomach (also known as gastritis). Thus, we feel that your pancreatitis was due to a passed gallstone. At this time we recommend - 1. referral to general surgery [facility] for consideration of cholecystectomy (cooper ce of gall gladder) 2. 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 3. furosemide (diuretic/water pill) 20mg each morning on Wednesday, 12/24 and Wednesday, 12/25. You will need just 2 doses. 4. potassium and magnesium supplements on Wednesday and Wednesday as well. 5. STOP your aspirin for now since your stomach was irritated on endoscopy and the aspirin could make that condition worse. Would also avoid [id number] motrin, naprosyn, ibuprofen, alleve, etc. 6. STOP your lovastatin since your LFTs are still mildly high. You may be able to resume this in a few weeks. 7. Gradually increase your diet over the next 48 hours as follows -- * tonight - add in dairy products * tomorrow - add in soft, bland, low fat foods * this weekend and until your gall bladder has been removed - low fat diet (avoid fast foods, fried foods, etc) 8. follow-up -- * see Dr Pacheco within 1 week; please have him repeat your electrolytes, kidney function, and liver functions at that time * see any of the [facility] or [facility] Surgeons - [facility] Return to [facility] if -- * you have fevers over 100.5 degrees * you have recurrent abdominal pain, nausea, vomiting * you have significant constipation or inability to pass stool * you develop shortness of breath * any other concerns Prescriptions: New pantoprazole 40 mg Tablet,Delayed Release (Dr/Ec) 40 mg PO QAM Qty: 30 RF: 0 Continued coenzyme Q10 [Co Q-10] 100 mg Capsule 100 mg PO DAILY RF: 0 cholecalciferol (vitamin D3) 400 unit Tablet 400 unit PO DAILY RF: 0 multivitamin [Multiple Vitamins] Tablet 1 tab PO DAILY RF: 0 Discontinued lovastatin 20 mg tablet 20 mg PO DAILY RF: 0 aspirin [Aspir-81] 81 mg Tablet,Delayed Release (Dr/Ec) 81 mg PO Q2D RF: 0 Stand-Alone Forms: Call Back Authorization, [facility]/Other Patient Handouts: Gallstones, ED Gastritis, ED Pancreatitis Discharge Orders: Discharge Order (Routine); Ordered 12/23/18 Ordered By: Kvng Patel Admission Data Admit Date/Time: 12/17/18 23:47 Attending Provider: Kvng Patel Admit Provider: Tez Reyna Primary Care Provider: Davy Pacheco Other Providers: Tez Reyna ; Imelda Dixon ; Delilah Erazo ; Rissa Forman ; Angela Castro ; Rodolfo Fonseca Service: Medical Other Interventions: Discharge Summary Assessment (RN) Last Done: 12/23/18 19:33 Pending Studies at Discharge: No DC Date/Time DO NOT enter until pt leaves facility: 12/23/18 19:53
== END 2018-12-23 19:53 | disposition home or self-care (01) | DRG 440 ==
LOC: ED 20:55 → SUATTDRO 23:47 → 4E 23:47
DX: Z79.82 Long term (current) use of aspirin; K29.60 Other gastritis without bleeding; Z79.899 Other long term (current) drug therapy; R74.8 Abnormal levels of other serum enzymes; E78.5 Hyperlipidemia, unspecified; E87.6 Hypokalemia; K59.00 Constipation, unspecified; Z80.0 Family history of malignant neoplasm of digestive organs; K85.10 Biliary acute pancreatitis without necrosis or infection

== ENCOUNTER 2019-01-05 06:46 | Observation (INO) ==
--- NOTE | 2018-12-30 16:19 | Anesthesiology Consultation ---
Date of Service December 30, 2018 Assessment & Plan (1) Encounter for pre-operative examination: S/P EGD/EUS: 12/23/18: Grade view 1, MAC#3, ETT 7.0 at [facility] Chart Review Chart Review: Acceptable Risk for Surgery and Patient NOT seen in Pre Admission Testing Consults Requested none History Surgery Operation Date: 01/05/19 08:15 Proposed Procedures p Laparoscopic Cholecystectomy, Possible Cholangiogram - Je Pyle MD, FACS Height/Weight Height: 5 ft 5 in Weight: 45.359 kg Allergies Allergy/AdvReac Type Severity Reaction Status Date / Time No Known Allergies Allergy Verified 01/05/19 07:16 Medications Home Medications Medication Instructions Recorded Confirmed Last Taken cholecalciferol (vitamin D3) 400 unit PO DAILY 12/17/18 01/05/19 12/17/18 coenzyme Q10 [Co Q-10] 100 mg PO DAILY 12/17/18 01/05/19 12/17/18 multivitamin [Multiple Vitamins] 1 tab PO DAILY 12/17/18 01/05/19 12/17/18 pantoprazole 40 mg PO QAM #30 tab 12/23/18 01/05/19 01/05/19 06:15 acetaminophen [Tylenol] 650 mg PO Q6H PRN 01/05/19 01/05/19 Unknown Active Medications Generic Name Dose Route Start Last Admin Trade Name Freq PRN Reason Stop Dose Admin Lactated Ringer's 1,000 mls @ 15 mls/hr 01/05/19 06:00 01/05/19 07:20 Lr IV 01/06/19 05:59 15 mls/hr .Q24H CURTIS Administration Past Medical History Medical History Acid reflux HX Hyperlipidemia Pancreatitis 11/2018 Thyroid nodule "POLYPS"- UNDER SURVEILLANCE Exercise / Class Metabolic Activity II 4-5 Yardwork/Stairs/Walk up hill Past Family History Family History Other Pancreatic cancer Prostate cancer Past Surgical History Surgical History History of bilateral cataract extraction History of colonoscopy History of tonsillectomy Hx of tubal ligation [place] teeth removed Past Anesthesia History No Hx of Anesthesia Complications and No Family Hx of Anesthesia Complications History of PONV No Hx of PONV and No Hx of Motion Sickness Social History Smoking Status: Never smoker Do You Dip or Chew Tobacco: No Hx Alcohol Use: Yes Alcohol type: wine alcohol intake frequency: holidays/special occasions only Hx Substance Use: No substance use type: does not use Physical Exam Vital Signs Last Vital Signs Temp 36.6 C 01/05/19 07:14 Pulse 77 01/05/19 07:14 Resp 20 01/05/19 07:14 BP 139/58 L 01/05/19 07:14 Pulse Ox 98 01/05/19 07:14 Testing Electrocardiogram Date: 12/17/18 NSR at 79bpm. NS ST/TWA. Other Testing 12/29/18 WBC 5.53 H/H 13.7/41.5 PLATELETS 297 SODIUM 141 POTASSIUM 4.2 CHLORIDE 107 CO2 31 BUN 25 CREATININE 0.64 GLUCOSE 101 12/18/18 PT 11.1 INR 1.1 12/17/18 UA negative bacteria
[~2019-01-05 06:46] MED LIST: LR 15ML/HR IV SCH; cefUROXime 1,500 MG in DEXTROSE 5% 100 ML IV SCH
[2019-01-05] MEDS ORDERED: ATROPINE SULFATE 0.1 MG/ML 10ML SYR IV PRN (07:23)
[2019-01-05] MEDS ORDERED: ePHEDrine sulfate 50 MG/ML AMP IV PRN (07:23)
[2019-01-05] MEDS ORDERED: fentaNYL citrate 100 MCG/2 ML VIAL IV PRN (07:23)
[2019-01-05] MEDS ORDERED: ONDANSETRON INJ 2 MG/ML 2 ML VIAL IV PRN ×2 (07:23→10:18)
[2019-01-05] MEDS ORDERED: HYDROmorphone INJ 1 MG/ML SYRINGE IV PRN (07:23)
[2019-01-05] MEDS ORDERED: PROPOFOL IV EMULSION 10 MG/ML 20 ML VIAL IV ONE (07:24)
[2019-01-05] MEDS ORDERED: ROCURONIUM BROMIDE 10 MG/ML 5 ML VIAL ONE (07:24)
[2019-01-05] MEDS ORDERED: MIDAZOLAM HCL 1 MG/ML 2ML VIAL ONE (07:24)
[2019-01-05] MEDS ORDERED: LIDOCAINE HCL 2% 2 ML VIAL/AMP(20MG/ML) INFIL ONE (07:24)
[2019-01-05] MEDS ORDERED: fentaNYL citrate 100 MCG/2 ML VIAL ONE ×2 (07:24)
--- NOTE | 2019-01-05 07:45 | History & Physical Bridge Note ---
Date of Service January 05, 2019 History & Physical Bridge Note I have examined the patient, reviewed the History & Physical and in the interval since the performance of the History & Physical I have noted the following changes of clinical significance: no changes noted
[2019-01-05] MEDS ORDERED: CONRAY 60% 50 ML VIAL ONE (07:52)
[2019-01-05] MEDS ORDERED: BUPIVACAINE 0.5 % 5 MG/1 ML MPF 30ML VIAL ONE (07:52)
[2019-01-05] MEDS ORDERED: NEOSTIGMINE METHYLSULFATE 5 MG/5 ML SYR ONE (08:40)
[2019-01-05] MEDS ORDERED: GLYCOPYRROLATE 0.2 MG/ML VIAL ONE (08:40)
[2019-01-05] MEDS ORDERED: ONDANSETRON INJ 2 MG/ML 2 ML VIAL ONE (08:40)
[2019-01-05] MEDS ORDERED: ePHEDrine sulfate 50 MG/ML SYR ONE (08:40)
[2019-01-05] MEDS ORDERED: DEXAMETHASONE SOD INJ 4 MG/ML VIAL ONE (08:40)
[2019-01-05] MEDS ORDERED: ACETAMINOPHEN 1,000 MG/100 ML VIAL IV ONE (09:05)
--- NOTE | 2019-01-05 09:05 | Operative Report ---
Post Operative Report Pre & Post Diagnosis Operation Date: 01/05/19 08:15 Pre-Op Diagnosis: Gallstone Pancreatitis Post-Op Diagnosis: Gallstone Pancreatitis, chronic cholecystitis, adhesions Procedure Operation Date: 01/05/19 08:15 Actual Procedures p Laparoscopic Cholecystectomy(Not Applicable) - Je Pyle MD, FACS lysis of adhesions Surgeon Je Pyle MD, FACS Drug Enforcement Administration Agent Dane Tiwari Estimated Blood Loss 10 Findings Consistent with Post-Op Diagnosis Specimens gallbladder Description of Procedure see dictation I attest to the content of the Intraoperative Record and any orders documented therein. Any exceptions are noted below.
--- NOTE | 2019-01-05 09:55 | Anesthesiology Progress Note ---
Date of Service January 05, 2019 Anesthesia Post Procedure Vital Signs Vital Signs: Temp Pulse Pulse Resp BP BP Pulse Ox 01/05/19 09:45 59 L 12 116/62 100 01/05/19 09:35 63 16 113/58 L 100 01/05/19 09:25 68 18 112/59 L 100 01/05/19 09:19 36.1 C L 73 14 129/69 100 01/05/19 07:14 36.6 C 77 20 139/58 L 98 Transfer of Care Handoff Completed per policy Notes Mental Status: alert / awake / arousable and participated in evaluation Patient Amnestic to Procedure: Yes Nausea / Vomiting: adequately controlled Pain: adequately controlled Airway Patency, RR, SpO2: stable & adequate BP & HR: stable & adequate Hydration State: stable & adequate Anesthetic Complications: no major complications apparent and Pt Satisfied with anesthetic care
[2019-01-05] MEDS ORDERED: PROMETHAZINE HCL 12.5 MG in SODIUM CHLORIDE 0.9% 50 ML IV PRN (10:18)
[2019-01-05] MEDS ORDERED: MoRPHine SULFATE 2 MG/ML CARP IV PRN (10:18)
[2019-01-05] MEDS ORDERED: ACETAMINOPHEN 325 MG TAB PO PRN (10:18)
[2019-01-05] MEDS ORDERED: IBUPROFEN 600 MG TAB PO PRN (10:18)
[2019-01-05] MEDS ORDERED: MoRPHine SULFATE 4 MG/ML 1 ML CARP\\VIAL IV PRN (10:18)
[2019-01-05] MEDS ORDERED: HYDROCODONE/ACETAMOPHEN 5/325MG TAB PO PRN ×2 (10:18)
[2019-01-05] MEDS ORDERED: SODIUM CHLORIDE 0.9% 1000ML 1,000 ML IV SCH (10:18)
--- NOTE | 2019-01-05 10:58 | Operative Report ---
DATE OF OPERATION: 01/05/2019 NAME OF OPERATION: Laparoscopic cholecystectomy with lysis of adhesions. PREOPERATIVE DIAGNOSIS: Gallstone pancreatitis. POSTOPERATIVE DIAGNOSES: Gallstone pancreatitis with chronic cholecystitis and adhesions. STAFF SURGEON: Dr. Pyle. NICKER AND BREAKER: Juanis Tiwari PA-C. ANESTHESIA: General. DESCRIPTION OF PROCEDURE: The patient was brought in the Operating Room and placed on the operating table in supine position. Her abdomen was prepped and draped in usual fashion. My dietary assistant helped with prepping, draping, removal of the gallbladder and closure of the wounds. Initially 0.5% plain Marcaine was used to anesthetize all incisions. Incision was made above the umbilicus carrying dissection down to the fascia, placing a Veress needle. Pneumoperitoneum was produced. An 11 mm port placed at this level. Then under visualization, three 5 mm ports placed, 1 cephalad and 2 laterally. Gallbladder was distended. It was retracted. There were adhesions to the gallbladder. These were taken down. Gallbladder was aspirated of bile. Dissection carried out at the ruthie hepatis. There was scar tissue at the ruthie hepatis consistent with chronic cholecystitis. The cystic duct was identified, clipped and transected. A very small branch suspected to be the cystic artery was identified, clipped and transected. Then the gallbladder dissected away from the liver bed easily identifying the tissue as we dissected. There was scar tissue from chronic inflammation. Gallbladder was then placed in an Endobag. After appropriate irrigation and hemostasis, the Endobag was removed through the umbilical site. The gallbladder was very small. The fascia at the umbilicus closed using interrupted 0 Vicryl suture. Skin reapproximated using subcuticular 4-0 Monocryl with Steri-Strips. The patient was transferred to Recovery Room in stable condition. I attest to the content of the Intraoperative Record and any orders documented therein. Any exception s are noted below.
[2019-01-06 05:32] LABS: Basophils # (auto) 0.03 K/uL (0-0.2); Basophils % (auto) 0.4 %; Eosinophils # (auto) 0.28 K/uL (0-0.5); Eosinophils % (auto) 3.5 %; Hematocrit (blood only) 35.1 % (37-47); Hemoglobin 11.6 g/dL (12.0-16.0); Immature Granulocytes # (auto) 0.02 K/uL (0.00-0.02); Immature Granulocytes % (auto) 0.2 %; Lymphocytes # (auto) 1.46 K/uL (1.2-3.4); Mean Corpuscular Volume 92.6 fL (80-100); Mean Platelet Volume 11.2 fL (7.4-10.4); Monocytes # (auto) 0.72 K/uL (0.11-0.59); Monocytes % (auto) 8.9 %; Platelet Count 216 K/uL (130-400); RDW Coefficient of Variation 13.5 % (11.5-14.5); RDW Standard Deviation 45.7 fL (36.4-46.3); Red Blood Count 3.79 M/uL (4.2-5.4); White Blood Count 8.11 K/uL (4.8-10.8)
[2019-01-06 06:14] LABS: Alanine Aminotransferase 26 U/L (12-78); Albumin Level 2.8 gm/dl (3.4-5.0); Aspartate Aminotransferase 20 U/L (15-37); BUN Creatinine Ratio 26.9 (10-20); Bilirubin Direct < 0.1 mg/dl (0-0.2); Blood Urea Nitrogen 19 mg/dl (7-18); Calcium 8.1 mg/dl (8.5-10.1); Carbon Dioxide 26 mmol/L (21-32); Chloride 111 mmol/L (98-107); Creatinine Clr Calc Pharmacy 53.7 ml/min; Est GFR (African American) 100.3; Est GFR (Non-African American) 86.6; Glucose 93 mg/dl (70-99); Potassium 3.7 mmol/L (3.5-5.1); Sodium 143 mmol/L (136-145)
[2019-01-06 06:17] LABS: Alkaline Phosphatase 102 U/L (45-117); Bilirubin,Total 0.6 mg/dl (0.2-1); Globulin 2.8 gm/dl (2.5-4.0); Total Protein 5.6 gm/dl (6.4-8.2)
--- NOTE | 2019-01-06 07:06 | Discharge Summary ---
PRINCIPAL DIAGNOSIS: Chronic cholecystitis with gallstone pancreatitis. PROCEDURES: The patient underwent laparoscopic cholecystectomy. HISTORY OF PRESENT ILLNESS: The patient is a 73-year-old female admitted to the hospital recently with gallstone pancreatitis now for definitive removal of her gallbladder. HOSPITAL COURSE: She brought into the hospital on 01/05/2019 where she underwent laparoscopic cholecystectomy, which she tolerated very well, has done well overnight and is felt stable for discharge home today to be followed in the surgical clinic within 1-2 weeks.
--- NOTE | 2019-01-06 07:54 | Anesthesiology Progress Note ---
Date of Service January 06, 2019 Anesthesia Post Procedure Vital Signs Vital Signs: Temp Pulse Pulse Pulse Resp BP Pulse Ox 01/06/19 07:00 36.9 C 77 20 118/65 97 01/05/19 23:30 36.9 C 72 18 110/63 98 01/05/19 19:33 36.7 C 69 16 122/67 98 01/05/19 15:01 36.8 C 84 16 100/60 98 01/05/19 13:15 75 16 118/73 98 01/05/19 12:15 72 16 114/65 93 01/05/19 11:26 66 16 110/61 98 01/05/19 10:51 65 16 123/64 99 01/05/19 10:15 36.4 C L 61 16 122/75 100 01/05/19 09:55 37.2 C 58 L 14 132/63 100 01/05/19 09:45 59 L 12 116/62 100 01/05/19 09:35 63 16 113/58 L 100 01/05/19 09:25 68 18 112/59 L 100 01/05/19 09:19 36.1 C L 73 14 129/69 100 Pain Intensity Abdomen: Pain Intensity: 2 Notes Mental Status: alert / awake / arousable and participated in evaluation Patient Amnestic to Procedure: Yes Nausea / Vomiting: adequately controlled Pain: adequately controlled Airway Patency, RR, SpO2: stable & adequate BP & HR: stable & adequate Hydration State: stable & adequate Anesthetic Complications: no major complications apparent and Pt Satisfied with anesthetic care
[2019-01-06] MEDS ORDERED: PANTOprazole 40 MG TAB PO SCH (09:00)
== END 2019-01-06 11:29 | disposition home or self-care (01) ==
LOC: 3N 06:46 → ASU 06:46